=== PATIENT | male | born 1950 | race Hispanic/Latino ===

== ENCOUNTER 2018-10-13 16:53 | Inpatient (IN) | payer MEDICARE, BC ==
--- NOTE | 2018-10-13 18:03 | RAD ---
Date of service: 10/13/2018 HISTORY: CHF. COMPARISON: No prior. FINDINGS: LUNGS: No active pulmonary disease. PLEURA: No significant pleural effusion identified, no pneumothorax apparent. CARDIOVASCULAR: Cardiomegaly. No evidence of acute, significant cardiovascular disease. No radiographic findings to suggest acute or significant cardiovascular disease. Incidental Finding(s): Postoperative changes related to sternotomy. OSSEOUS STRUCTURES: No significant abnormalities. VISUALIZED UPPER ABDOMEN: Normal. OTHER FINDINGS: None. IMPRESSION: No active disease.
--- NOTE | 2018-10-13 18:24 | C.PDOC ---
History Of Present Illness 68 y/o male presents to ED sent by Dr. Davies for worsening leg swelling since 11/2017. Patient admits to sob on exertion and denies chest pain, fever, chills, nausea, vomiting, change in sensation to legs or any other complaints at this time. Time Seen by Provider: 10/13/18 17:29 Chief Complaint (Nursing): Lower Extremity Problem/Injury History Per: Patient History/Exam Limitations: no limitations Onset/Duration Of Symptoms: Days Current Symptoms Are (Timing): Still Present Past Medical History Reviewed: Historical Data, Nursing Documentation, Vital Signs Vital Signs: Last Vital Signs Temp 97.8 F 10/13/18 17:34 Pulse 81 10/13/18 18:06 Resp 18 10/13/18 18:06 BP 169/93 H 10/13/18 18:06 Pulse Ox 96 10/13/18 18:06 - Medical History PMH: No Chronic Diseases Surgical History: No Surg Hx Family History: States: No Known Family Hx - Social History Hx Alcohol Use: No Hx Substance Use: No Review Of Systems Constitutional: Negative for: Fever, Chills Cardiovascular: Negative for: Chest Pain, Palpitations Respiratory: Positive for: SOB with Excertion. Negative for: Cough Gastrointestinal: Negative for: Nausea, Vomiting Musculoskeletal: Positive for: Leg Pain (swelling) Skin: Negative for: Rash, Bruising Neurological: Negative for: Weakness, Numbness Physical Exam - Physical Exam Appears: Non-toxic, No Acute Distress Skin: Warm, Dry, No Rash Head: Atraumatic, Normacephalic Eye(s): bilateral: Normal Inspection Oral Mucosa: Moist Neck: Normal ROM, Supple Cardiovascular: Rhythm Irregular Respiratory: Normal Breath Sounds, No Rales, No Rhonchi, No Wheezing Gastrointestinal/Abdominal: Soft, No Tenderness, No Guarding, No Rebound Extremity: Pedal Edema (3+ on bilateral lower extremities with venoustasis), Capillary Refill (<2 seconds), No Deformity Extremity: Bilateral: Normal ROM Pulses: Left Dorsalis Pedis: Normal, Right Dorsalis Pedis: Normal Neurological/Psych: Oriented x3, Normal Motor, Normal Sensation ED Course And Treatment - Laboratory Results Result Diagrams: 10/13/18 18:21 10/13/18 18:21 ECG: Interpreted By Me ECG Rhythm: Atrial Fibrillation, PVC (occasional) Interpretation Of ECG: Normal axis, no ST elevation Rate From EC O2 Sat by Pulse Oximetry: 96 (RA) Pulse Ox Interpretation: Normal - Radiology CXR: Read By Radiologist CXR Interpretation: Yes: No Acute Disease Medical Decision Making Medical Decision Making: Plan: * ECG * Blood work * Lasix Patient given 40mg lasix ivp. Lab and XR results reviewed and discussed with patient. BP improved to 169/93. Case discussed with Dr. Lozoya who accepts patient to his service. Disposition - Disposition Disposition Time: 19:20 Condition: STABLE Forms: [employer] (Taiwanese) - Clinical Impression Clinical Impression: CHF (congestive heart failure) - Scribe Statement The provider has reviewed the documentation as recorded by the Scribe Sheryl Ordonez All medical record entries made by the Scribe were at my direction and personally dictated by me. I have reviewed the chart and agree that the record accurately reflects my personal performance of the history, physical exam, medical decision making, and the department course for this patient. I have also personally directed, reviewed, and agree with the discharge instructions and disposition.
[2018-10-13 18:25] LABS: BASO # 0.1 K/uL (0.0-0.2); BASO % 0.6 % (0.0-2.0); EOS # 0.2 K/uL (0.0-0.7); EOS % 2.8 % (0.0-4.0); HEMOGLOBIN 13.2 g/dL (12.0-18.0); LYMPH # 1.9 K/uL (1.0-4.3); LYMPH % 22.3 % (20.0-40.0); MEAN CELL VOLUME 83.3 fL (80.0-94.0); MEAN CORPUSCULAR HEMOGLOBIN 27.4 pg (27.0-31.0); MEAN CORPUSCULAR HGB CONC 32.9 g/dL (33.0-37.0); MONO # 0.8 K/uL (0.0-0.8); MONO % 9.9 % (0.0-10.0); NEUT # 5.4 K/uL (1.8-7.0); NEUT % 64.4 % (50.0-75.0); RBC 4.83 Mil/uL (4.40-5.90); RED CELL DISTRIBUTION WIDTH 15.6 % (11.5-14.5); WHITE BLOOD COUNT 8.4 K/uL (4.8-10.8)
[2018-10-13 18:40] LABS: BLOOD UREA NITROGEN 14 mg/dL (9-20); CALCIUM 9.3 mg/dl (8.6-10.4); GFR NON-AFRICAN AMERICAN > 60
[2018-10-13 18:41] LABS: INR 1.3; PROTHROMBIN TIME 14.4 SECONDS (9.7-12.2)
[2018-10-13 18:52] LABS: B-TYPE NATRIURETIC PEPTIDE 2120 pg/mL (0-900)
--- NOTE | 2018-10-13 20:48 | CP.PCM.CON ---
History of Present Illness - History of Present Illness History of Present Illness: INFECTIOUS DISEASE CONSULTATION REANNA MOREL MD, FACP 10/13/2018 CHART REVIEWD PT EXAMINED CASE DISCUSSED 68 YR OLD MALE PRESENTS WITH PROGRESSIVE SWELLING OF HIS LEGS, FEET AND DIFFICULTY WALKING -2ND TO SOB,CALDERA, AND PAINFULL LEGS. ADMISSION WAS INITIALLY ADVISED 2ND TO CHF, CAD, DM, S/P RECENT CARDIAC STENTS, BP OUT OF CONTROLL - DR PERALTA IS AWARE. AN INFECTIOUS DISEASE CONSULTATION WAS ADVISED 2ND CELLULITIS OF HIS FEET, LEGS AND RIGHT GROIN: DOUBT ZOSTER OF GROIN. OBSERVE MEDICALLY IV LASIX IV ANCEF 2 GMS IVPB Q 8 HOURS BLOOD C/S BP MEDS Past Patient History - Past Social History Smoking Status: Never Smoked - PSYCHIATRIC Hx Substance Use: No Meds Allergies/Adverse Reactions: Allergies Allergy/AdvReac Type Severity Reaction Status Date / Time No Known Allergies Allergy Unverified 10/13/18 17:26 - Medications Medications: Current Medications Carvedilol (Coreg) 6.25 mg PO BID [facility] Clopidogrel Bisulfate (Plavix) 75 mg PO DAILY [facility] Diltiazem HCl (Cardizem Cd) 240 mg PO DAILY [facility] Furosemide (Lasix) 40 mg IVP BID [facility] Gabapentin (Neurontin) 300 mg PO TID [facility] Hydralazine HCl (Apresoline) 25 mg PO BID [facility] Cefazolin Sodium/Dextrose (Ancef Iv 2 Gm Duplex) 2 gm in 50 mls @ 100 mls/hr IVPB Q8H [facility]; Protocol Levothyroxine Sodium (Synthroid) 75 mcg PO DAILY@0630 [facility] Rivaroxaban (Xarelto) 20 mg PO DAILY [facility] Rosuvastatin Calcium (Crestor) 40 mg PO HS [facility] Results - Vital Signs Recent Vital Signs: Last Vital Signs Temp 97.8 F 10/13/18 17:34 Pulse 87 10/13/18 19:56 Resp 17 10/13/18 19:56 BP 181/97 H 10/13/18 19:56 Pulse Ox 98 10/13/18 19:56 - Labs Result Diagrams: 10/13/18 18:21 10/13/18 18:21 Labs: Laboratory Results - last 24 hr 10/13/18 10/13/18 10/13/18 18:21 18:21 18:21 WBC 8.4 RBC 4.83 Hgb 13.2 Hct 40.2 MCV 83.3 MCH 27.4 MCHC 32.9 L RDW 15.6 H Plt Count 240 MPV 9.0 Neut % (Auto) 64.4 Lymph % (Auto) 22.3 [place] % (Auto) 9.9 Eos % (Auto) 2.8 Baso % (Auto) 0.6 Neut # (Auto) 5.4 Lymph # (Auto) 1.9 [place] # (Auto) 0.8 Eos # (Auto) 0.2 Baso # (Auto) 0.1 PT 14.4 H INR 1.3 APTT 35 H Sodium 141 Potassium 3.8 Chloride 105 Carbon Dioxide 26 Anion Gap 14 BUN 14 Creatinine 0.8 Est GFR ( Amer) > 60 Est GFR (Non-Af Amer) > 60 POC Glucose (mg/dL) Random Glucose 126 H Calcium 9.3 Troponin I 0.0300 NT-Pro-B Natriuret Pep 2120 H 10/13/18 18:26 WBC RBC Hgb Hct MCV MCH MCHC RDW Plt Count MPV Neut % (Auto) Lymph % (Auto) [place] % (Auto) Eos % (Auto) Baso % (Auto) Neut # (Auto) Lymph # (Auto) [place] # (Auto) Eos # (Auto) Baso # (Auto) PT INR APTT Sodium Potassium Chloride Carbon Dioxide Anion Gap BUN Creatinine Est GFR ( Amer) Est GFR (Non-Af Amer) POC Glucose (mg/dL) 130 H Random Glucose Calcium Troponin I NT-Pro-B Natriuret Pep
[2018-10-13] MEDS ORDERED: ceFAZolin IV 2 gm in Dextrose 2 GM/50 ML BAG IVPB SCH (21:00)
[2018-10-13] MEDS: ceFAZolin 2 GM in Sodium Chloride 0.9% 100 ML IVPB SCH (21:39)
[2018-10-14] MEDS: ceFAZolin 2 GM in Sodium Chloride 0.9% 100 ML IVPB SCH ×3 (05:39→21:28)
--- NOTE | 2018-10-14 06:08 | CP.PCM.CON ---
History of Present Illness - History of Present Illness History of Present Illness: Patient sent from Dr. Mayorga's office for acute on Chronic diastolic CHF Pedal edema IV Laisix Check ECHO ministerio Patel Will follow Past Patient History - Past Social History Smoking Status: Former Smoker - CARDIAC Hx Congestive Heart Failure: Yes Hx Heart Attack: Yes - NEUROLOGICAL HX Cerebrovascular Accident: Yes - ENDOCRINE/METABOLIC Hx Diabetes Mellitus Type 2: Yes - MUSCULOSKELETAL/RHEUMATOLOGICAL Hx Arthritis: Yes Hx Falls: No - PSYCHIATRIC Hx Substance Use: No - SURGICAL HISTORY Hx Cardiac Catheterization: Yes Other/Comment: CABG x 4 stents - ANESTHESIA Hx Anesthesia: Yes Has any member of the family had a problem w/ anesthesia?: No Meds Allergies/Adverse Reactions: Allergies Allergy/AdvReac Type Severity Reaction Status Date / Time No Known Allergies Allergy Unverified 10/13/18 17:26 - Medications Medications: Current Medications Carvedilol (Coreg) 6.25 mg PO BID [facility] Clopidogrel Bisulfate (Plavix) 75 mg PO DAILY [facility] Diltiazem HCl (Cardizem Cd) 240 mg PO DAILY [facility] Furosemide (Lasix) 40 mg IVP BID [facility] Gabapentin (Neurontin) 300 mg PO TID [facility] Hydralazine HCl (Apresoline) 25 mg PO BID [facility] Cefazolin Sodium 2 gm/ Sodium (Chloride) 100 mls @ 100 mls/hr IVPB Q8H [facility]; Protocol Last Admin: 10/14/18 05:39 Dose: 100 mls/hr Levothyroxine Sodium (Synthroid) 75 mcg PO DAILY@0630 [facility] Last Admin: 10/14/18 05:40 Dose: 75 mcg Rivaroxaban (Xarelto) 20 mg PO DAILY [facility] Rosuvastatin Calcium (Crestor) 40 mg PO HS [facility] Last Admin: 10/13/18 21:37 Dose: 40 mg Results - Vital Signs Recent Vital Signs: Last Vital Signs Temp 98.2 F 10/14/18 00:00 Pulse 85 10/14/18 00:00 Resp 20 10/14/18 00:00 BP 165/77 H 10/14/18 00:00 Pulse Ox 95 10/14/18 00:00 - Labs Result Diagrams: 10/13/18 18:21 10/13/18 18:21 Labs: Laboratory Results - last 24 hr 10/13/18 10/13/18 10/13/18 18:21 18:21 18:21 WBC 8.4 RBC 4.83 Hgb 13.2 Hct 40.2 MCV 83.3 MCH 27.4 MCHC 32.9 L RDW 15.6 H Plt Count 240 MPV 9.0 Neut % (Auto) 64.4 Lymph % (Auto) 22.3 [place] % (Auto) 9.9 Eos % (Auto) 2.8 Baso % (Auto) 0.6 Neut # (Auto) 5.4 Lymph # (Auto) 1.9 [place] # (Auto) 0.8 Eos # (Auto) 0.2 Baso # (Auto) 0.1 PT 14.4 H INR 1.3 APTT 35 H Sodium 141 Potassium 3.8 Chloride 105 Carbon Dioxide 26 Anion Gap 14 BUN 14 Creatinine 0.8 Est GFR ( Amer) > 60 Est GFR (Non-Af Amer) > 60 POC Glucose (mg/dL) Random Glucose 126 H Calcium 9.3 Troponin I 0.0300 NT-Pro-B Natriuret Pep 2120 H 10/13/18 10/13/18 10/13/18 18:26 22:11 22:18 WBC RBC Hgb Hct MCV MCH MCHC RDW Plt Count MPV Neut % (Auto) Lymph % (Auto) [place] % (Auto) Eos % (Auto) Baso % (Auto) Neut # (Auto) Lymph # (Auto) [place] # (Auto) Eos # (Auto) Baso # (Auto) PT INR APTT Sodium Potassium Chloride Carbon Dioxide Anion Gap BUN Creatinine Est GFR ( Amer) Est GFR (Non-Af Amer) POC Glucose (mg/dL) 130 H 134 H Random Glucose Calcium Troponin I 0.0400 NT-Pro-B Natriuret Pep
[2018-10-14] MEDS ORDERED: Levothyroxine 75 MCG TAB PO SCH (06:30)
[2018-10-14 06:34] LABS: BASO # 0.1 K/uL (0.0-0.2); BASO % 0.8 % (0.0-2.0); EOS # 0.3 K/uL (0.0-0.7); EOS % 3.4 % (0.0-4.0); HEMOGLOBIN 12.7 g/dL (12.0-18.0); LYMPH # 1.8 K/uL (1.0-4.3); LYMPH % 23.8 % (20.0-40.0); MEAN CELL VOLUME 82.9 fL (80.0-94.0); MEAN CORPUSCULAR HEMOGLOBIN 27.7 pg (27.0-31.0); MEAN CORPUSCULAR HGB CONC 33.4 g/dL (33.0-37.0); MEAN PLATELET VOLUME 8.6 fL (7.2-11.7); MONO # 0.9 K/uL (0.0-0.8); MONO % 12.4 % (0.0-10.0); NEUT # 4.5 K/uL (1.8-7.0); NEUT % 59.6 % (50.0-75.0); RBC 4.59 Mil/uL (4.40-5.90); RED CELL DISTRIBUTION WIDTH 15.7 % (11.5-14.5); WHITE BLOOD COUNT 7.6 K/uL (4.8-10.8)
[2018-10-14 06:54] LABS: ALB/GLOB RATIO 1.6 (1.0-2.1); ALBUMIN 3.9 g/dL (3.5-5.0); ALT/SGPT 25 U/L (21-72); AST/SGOT 25 U/L (17-59); BLOOD UREA NITROGEN 14 mg/dL (9-20); CALCIUM 8.8 mg/dl (8.6-10.4); GFR NON-AFRICAN AMERICAN > 60
--- NOTE | 2018-10-14 07:03 | CARD ---
APPROVED REPORT Date of service: 10/13/2018 EKG Measurement Heart [id number] <Conclusion> Atrial fibrillation with ashmans phenomenon Abnormal QRS-T angle, consider primary T wave abnormality Abnormal ECG
[2018-10-14] MEDS ORDERED: diltiaZEM 240 mg/24 Hours CD Cap PO SCH (10:00)
[2018-10-14] MEDS ORDERED: Potassium Chloride 20 mEq ER Tab PO ONE (11:59)
--- NOTE | 2018-10-14 13:09 | CP.PCM.PN ---
<Katherine Yooa - Last Filed: 10/14/18 13:06> Subjective - Date & Time of Evaluation Date of Evaluation: 10/14/18 Time of Evaluation: 13:06 - Subjective Subjective: Cardiology Follow Up Patient was seen and examined. Patient denied any current chest pain, shortness, and palpitations. Objective - Vital Signs/Intake and Output Vital Signs (last 24 hours): Temp Pulse Resp BP Pulse Ox 97.7 F 71 20 166/97 H 98 10/14/18 07:00 10/14/18 11:03 10/14/18 07:00 10/14/18 11:04 10/14/18 07:00 Intake and Output: 10/14/18 10/14/18 06:59 18:59 Intake Total 200 Output Total 350 Balance -150 - Medications Medications: Current Medications Carvedilol (Coreg) 6.25 mg PO BID [facility] Last Admin: 10/14/18 11:04 Dose: 6.25 mg Clopidogrel Bisulfate (Plavix) 75 mg PO DAILY [facility] Last Admin: 10/14/18 11:04 Dose: 75 mg Diltiazem HCl (Cardizem Cd) 240 mg PO DAILY [facility] Last Admin: 10/14/18 11:05 Dose: 240 mg Furosemide (Lasix) 40 mg IVP BID [facility] Last Admin: 10/14/18 11:04 Dose: 40 mg Gabapentin (Neurontin) 300 mg PO TID [facility] Last Admin: 10/14/18 11:04 Dose: 300 mg Hydralazine HCl (Apresoline) 25 mg PO QID [facility] Cefazolin Sodium 2 gm/ Sodium (Chloride) 100 mls @ 100 mls/hr IVPB Q8H [facility]; Protocol Last Admin: 10/14/18 05:39 Dose: 100 mls/hr Levothyroxine Sodium (Synthroid) 75 mcg PO DAILY@0630 [facility] Last Admin: 10/14/18 05:40 Dose: 75 mcg Rivaroxaban (Xarelto) 15 mg PO DAILY [facility] Last Admin: 10/14/18 11:13 Dose: 15 mg Rosuvastatin Calcium (Crestor) 40 mg PO HS [facility] Last Admin: 10/13/18 21:37 Dose: 40 mg - Labs Labs: 10/14/18 06:28 10/14/18 06:28 PT 14.4 SECONDS (9.7-12.2) H 10/13/18 18:21 INR 1.3 10/13/18 18:21 APTT 35 SECONDS (21-34) H 10/13/18 18:21 - Constitutional Appears: No Acute Distress - Head Exam Head Exam: NORMAL INSPECTION, NORMOCEPHALIC - Eye Exam Eye Exam: EOMI, PERRL - ENT Exam ENT Exam: Mucous Membranes Moist - Respiratory Exam Respiratory Exam: Clear to Ausculation Bilateral, NORMAL BREATHING PATTERN. absent: Decreased Breath Sounds - Cardiovascular Exam Cardiovascular Exam: REGULAR RHYTHM - GI/Abdominal Exam GI & Abdominal Exam: Soft, Normal Bowel Sounds. absent: Distended, Tenderness - Extremities Exam Extremities Exam: Pedal Edema, Tenderness Additional comments: bilateral edema from knees down; erythema noted, no open wounds, blisters. - Neurological Exam Neurological Exam: Alert, Awake, Oriented x3 - Psychiatric Exam Psychiatric exam: Normal Affect, Normal Mood - Skin Skin Exam: Dry, Intact, Normal Color, Warm Assessment and Plan - Assessment and Plan (Free Text) Plan: Bilateral Lower Extremity Edema / Underlying Cellulitis Chronic Diastolic Heart Failure Hx Hypertension, T2DM, CAD with CABG (4 vessel, 2000; 1 stent 2015; 11/2017 4 stents), HAZEL, PVD, PAD? Imaging: - Patient reports he had a stress test this year, normal - ECHO: ordered, pending lab results - Venous Dopplers: ordered, pending lab results - Arterial Dopplers: ordered, pending lab results Management: - Imaging ordered, will follow up results - Continue with Lasix 40mg IVP BID Case discussed with Miriam Cm DO, PGY2 <Bernardo Hernandez - Last Filed: 10/14/18 19:58> Objective - Vital Signs/Intake and Output Vital Signs (last 24 hours): Temp Pulse Resp BP Pulse Ox 97.9 F 50 L 20 119/67 98 10/14/18 19:04 10/14/18 19:04 10/14/18 19:04 10/14/18 19:04 10/14/18 19:04 Intake and Output: 10/14/18 10/15/18 18:59 06:59 Intake Total 500 Output Total 700 Balance -200 - Medications Medications: Current Medications Betamethasone/Clotrimazole (Lotrisone) 0 gm TOP BID [facility] Last Admin: 10/14/18 17:08 Dose: 1 applic Carvedilol (Coreg) 6.25 mg PO BID [facility] Last Admin: 10/14/18 17:07 Dose: 6.25 mg Clopidogrel Bisulfate (Plavix) 75 mg PO DAILY [facility] Last Admin: 10/14/18 11:04 Dose: 75 mg Diltiazem HCl (Cardizem Cd) 240 mg PO DAILY [facility] Last Admin: 10/14/18 11:05 Dose: 240 mg Furosemide (Lasix) 40 mg IVP BID [facility] Last Admin: 10/14/18 17:07 Dose: 40 mg Gabapentin (Neurontin) 300 mg PO TID [facility] Last Admin: 10/14/18 17:07 Dose: 300 mg Hydralazine HCl (Apresoline) 25 mg PO QID [facility] Last Admin: 10/14/18 17:07 Dose: 25 mg Cefazolin Sodium 2 gm/ Sodium (Chloride) 100 mls @ 100 mls/hr IVPB Q8H [facility]; Protocol Last Admin: 10/14/18 13:49 Dose: 100 mls/hr Levothyroxine Sodium (Synthroid) 75 mcg PO DAILY@0630 [facility] Last Admin: 10/14/18 05:40 Dose: 75 mcg Rivaroxaban (Xarelto) 15 mg PO DAILY [facility] Last Admin: 10/14/18 11:13 Dose: 15 mg Rosuvastatin Calcium (Crestor) 40 mg PO HS [facility] Last Admin: 10/13/18 21:37 Dose: 40 mg Silver Sulfadiazine (Silvadene 1% 20 Gm) 0 ea TOP BID [facility] Last Admin: 10/14/18 17:08 Dose: 1 applic - Labs Labs: 10/14/18 06:28 10/14/18 06:28 PT 14.4 SECONDS (9.7-12.2) H 10/13/18 18:21 INR 1.3 10/13/18 18:21 APTT 35 SECONDS (21-34) H 10/13/18 18:21 Assessment and Plan - Assessment and Plan (Free Text) Plan: Patient seen and evaluated personally by me. Plan of care d/w the medical resi dent and as documented
--- NOTE | 2018-10-14 13:24 | CARD ---
APPROVED REPORT Date of service: 10/14/2018 EXAM: Two-dimensional and M-mode echocardiogram with Doppler and color Doppler. Other Information Quality : TDSRhythm : INDICATION Peripheral Edema Cardiac Disease: CAD Congestive Heart Failure Surgery/Intervention CABD DIMENSIONS IVSd1.6 (0.7-1.1cm)LVDd4.4 (3.9-5.9cm) PWd1.2 (0.7-1.1cm)LA [id number] (18-58mL) LVDs3.1 (2.5-4.0cm)FS (%) 30.1 % LVEF (%)50.0 (>50%)LVEF (Brody's)51.04 % M-Mode DIMENSIONS Left Atrium (MM)3.88 (2.5-4.0cm)IVSd1.09 (0.7-1.1cm) Aortic Root4.41 (2.2-3.7cm)LVDd7.02 (4.0-5.6cm) Aortic Cusp Exc.2.58 (1.5-2.0cm)PWd1.12 (0.7-1.1cm) FS (%) 20 %LVDs5.58 (2.0-3.8cm) LVEF (%)50 (>50%) Mitral Valve MV E Ntxosucz121.8cm/sMV A Hrkfqdex26.5cm/sE/A ratio4.7 TDI Lateral E' Peak V6.80cm/sMedial E' Peak V7.71cm/sE/Lateral E'19.7 E/Medial E'17.4 Tricuspid Valve TR Peak Rwztycsu241xc/sTR Peak Gr.[id number] <Conclusion> Suboptimal study Left ventricle: thickness: normal; size: normal; overall ejection fraction: 65%: diastolic filling pressures: elevated Mitral valve: annulus: normal: leaflets: normal: excursion: normal; no significant trans-mitral gradient: No significant incompetence: left atrium: normal Aortic valve: leaflets:calcified thicke: excursion: normal; no significant trans-aortic gradient: mild incompetence: aortic root: dilated Right sided Structures: Pulmonary valve: normal; no significant incompetence; Tricuspid valve: normal; no significant incompetence: Intra-cardiac hemodynamics: pulmonary systolic pressures: 40mmHg; central venous pressures: normal No pericardial effusion
--- NOTE | 2018-10-14 14:26 | CP.PCM.CON ---
History of Present Illness - History of Present Illness History of Present Illness: Podiatry - Dr. Chairez 68 year old male patient seen and evaluated at bedside for lower extremity redness + swelling. Patient OOB in recliner, NAD. Patient was sent to ED by Dr. Hernandez for worsening leg swelling. At present, patient admits to tense, painful legs and reports difficulty with ambulation 2/2 severe lower extremity swelling, along with associated CALDERA. Patient states he was seeing an outside textile chemist for local wound care to LE, and states his existing wounds are currently closed. Denies n/v/f/d/c. Review of Systems - Review of Systems All systems: reviewed and no additional remarkable complaints except (as per HPI) Past Patient History - Past Social History Smoking Status: Former Smoker - CARDIAC Hx Congestive Heart Failure: Yes Hx Heart Attack: Yes - NEUROLOGICAL HX Cerebrovascular Accident: Yes - ENDOCRINE/METABOLIC Hx Diabetes Mellitus Type 2: Yes - MUSCULOSKELETAL/RHEUMATOLOGICAL Hx Arthritis: Yes Hx Falls: No - PSYCHIATRIC Hx Substance Use: No - SURGICAL HISTORY Hx Cardiac Catheterization: Yes Other/Comment: CABG x 4 stents - ANESTHESIA Hx Anesthesia: Yes Has any member of the family had a problem w/ anesthesia?: No Meds Allergies/Adverse Reactions: Allergies Allergy/AdvReac Type Severity Reaction Status Date / Time No Known Allergies Allergy Unverified 10/13/18 17:26 - Medications Medications: Current Medications Carvedilol (Coreg) 6.25 mg PO BID [facility] Last Admin: 10/14/18 11:04 Dose: 6.25 mg Clopidogrel Bisulfate (Plavix) 75 mg PO DAILY [facility] Last Admin: 10/14/18 11:04 Dose: 75 mg Diltiazem HCl (Cardizem Cd) 240 mg PO DAILY [facility] Last Admin: 10/14/18 11:05 Dose: 240 mg Furosemide (Lasix) 40 mg IVP BID [facility] Last Admin: 10/14/18 11:04 Dose: 40 mg Gabapentin (Neurontin) 300 mg PO TID [facility] Last Admin: 10/14/18 13:51 Dose: 300 mg Hydralazine HCl (Apresoline) 25 mg PO QID [facility] Last Admin: 10/14/18 13:51 Dose: 25 mg Cefazolin Sodium 2 gm/ Sodium (Chloride) 100 mls @ 100 mls/hr IVPB Q8H [facility]; Protocol Last Admin: 10/14/18 13:49 Dose: 100 mls/hr Levothyroxine Sodium (Synthroid) 75 mcg PO DAILY@0630 [facility] Last Admin: 10/14/18 05:40 Dose: 75 mcg Rivaroxaban (Xarelto) 15 mg PO DAILY [facility] Last Admin: 10/14/18 11:13 Dose: 15 mg Rosuvastatin Calcium (Crestor) 40 mg PO HS [facility] Last Admin: 10/13/18 21:37 Dose: 40 mg Physical Exam - Constitutional Appears: Non-toxic, No Acute Distress - Extremities Exam Additional comments: VASC: DP and PT pulses nonpalpable 2/2 edema. Temperature gradient warm to warm. +3 pitting edema present bilaterally. No hair growth appreciated. NEURO: Gross sensation diminished bilaterally. DERM: Ulcerations noted circumfirentially to legs b/l with eschar cap - no drainage, no purulence, no flucutance, no undermining. Venous stasis dermatitis present bilaterally. Erythema/rubor from digits extending proximally up lower extremities b/l. ORTHO: ROM limited secondary to edema. No pain on palpation noted to ulcerations. - Neurological Exam Neurological exam: Alert, Oriented x3 - Psychiatric Exam Psychiatric exam: Normal Affect, Normal Mood Results - Vital Signs Recent Vital Signs: Last Vital Signs Temp 97.7 F 10/14/18 07:00 Pulse 78 10/14/18 13:51 Resp 20 10/14/18 07:00 BP 133/83 10/14/18 13:51 Pulse Ox 98 10/14/18 07:00 - Labs Result Diagrams: 10/14/18 06:28 10/14/18 06:28 Labs: Laboratory Results - last 24 hr 10/13/18 10/13/18 10/13/18 18:21 18:21 18:21 WBC 8.4 RBC 4.83 Hgb 13.2 Hct 40.2 MCV 83.3 MCH 27.4 MCHC 32.9 L RDW 15.6 H Plt Count 240 MPV 9.0 Neut % (Auto) 64.4 Lymph % (Auto) 22.3 [place] % (Auto) 9.9 Eos % (Auto) 2.8 Baso % (Auto) 0.6 Neut # (Auto) 5.4 Lymph # (Auto) 1.9 [place]k # (Auto) 0.8 Eos # (Auto) 0.2 Baso # (Auto) 0.1 ESR PT 14.4 H INR 1.3 APTT 35 H Sodium 141 Potassium 3.8 Chloride 105 Carbon Dioxide 26 Anion Gap 14 BUN 14 Creatinine 0.8 Est GFR ( Amer) > 60 Est GFR (Non-Af Amer) > 60 POC Glucose (mg/dL) Random Glucose 126 H Calcium 9.3 Total Bilirubin AST ALT Alkaline Phosphatase Troponin I 0.0300 C-Reactive Protein NT-Pro-B Natriuret Pep 2120 H Total Protein Albumin Globulin Albumin/Globulin Ratio TSH 3rd Generation 10/13/18 10/13/18 10/13/18 18:26 22:11 22:18 WBC RBC Hgb Hct MCV MCH MCHC RDW Plt Count MPV Neut % (Auto) Lymph % (Auto) [place] % (Auto) Eos % (Auto) Baso % (Auto) Neut # (Auto) Lymph # (Auto) [place]k # (Auto) Eos # (Auto) Baso # (Auto) ESR PT INR APTT Sodium Potassium Chloride Carbon Dioxide Anion Gap BUN Creatinine Est GFR ( Amer) Est GFR (Non-Af Amer) POC Glucose (mg/dL) 130 H 134 H Random Glucose Calcium Total Bilirubin AST ALT Alkaline Phosphatase Troponin I 0.0400 C-Reactive Protein NT-Pro-B Natriuret Pep Total Protein Albumin Globulin Albumin/Globulin Ratio [facility] 3rd Generation 10/14/18 10/14/18 10/14/18 06:19 06:28 06:28 WBC 7.6 RBC 4.59 Hgb 12.7 Hct 38.0 MCV 82.9 MCH 27.7 MCHC 33.4 RDW 15.7 H Plt Count 212 MPV 8.6 Neut % (Auto) 59.6 Lymph % (Auto) 23.8 Elk % (Auto) 12.4 H Eos % (Auto) 3.4 Baso % (Auto) 0.8 Neut # (Auto) 4.5 Lymph # (Auto) 1.8 Elk # (Auto) 0.9 H Eos # (Auto) 0.3 Baso # (Auto) 0.1 ESR 6 PT INR APTT Sodium 142 Potassium 3.5 L Chloride 106 Carbon Dioxide 27 Anion Gap 13 BUN 14 Creatinine 0.8 Est GFR ( Amer) > 60 Est GFR (Non-Af Amer) > 60 POC Glucose (mg/dL) 144 H Random Glucose 143 H Calcium 8.8 Total Bilirubin 0.7 AST 25 ALT 25 Alkaline Phosphatase 123 Troponin I C-Reactive Protein 23.20 H NT-Pro-B Natriuret Pep Total Protein 6.3 Albumin 3.9 Globulin 2.4 Albumin/Globulin Ratio 1.6 TSH 3rd Generation 5.48 H 10/14/18 10:56 WBC RBC Hgb Hct MCV MCH MCHC RDW Plt Count MPV Neut % (Auto) Lymph % (Auto) [place]k % (Auto) Eos % (Auto) Baso % (Auto) Neut # (Auto) Lymph # (Auto) [place]k # (Auto) Eos # (Auto) Baso # (Auto) ESR PT INR APTT Sodium Potassium Chloride Carbon Dioxide Anion Gap BUN Creatinine Est GFR ( Amer) Est GFR (Non-Af Amer) POC Glucose (mg/dL) 162 H Random Glucose Calcium Total Bilirubin AST ALT Alkaline Phosphatase Troponin I C-Reactive Protein NT-Pro-B Natriuret Pep Total Protein Albumin Globulin Albumin/Globulin Ratio TSH 3rd Generation Assessment & Plan - Assessment and Plan (Free Text) Assessment: 68M PMHx CHF with bilateral lower extremity edema and underlying cellulitis Plan: Patient seen and evaluated alongside attending, Dr. Chairez Afebrile, WBC 7.6 Continue abx per ID - Ancef 2g IV Silvadene + Lotrisone ordered - apply BID with DANIEL wraps Podiatry will continue to follow
[2018-10-14] MEDS: Clotrimazole/Betamethasone Cream(15 gm) TOP SCH (17:08)
[2018-10-14] MEDS: Silver Sulfadiazine 1% Cream (20 gm) TOP SCH (17:08)
--- NOTE | 2018-10-14 20:10 | CP.PCM.PN ---
Subjective - Date & Time of Evaluation Date of Evaluation: 10/14/18 Time of Evaluation: 20:04 - Subjective Subjective: INFECTIOUS DISEASE PROGRESS NOTES REANNA MOREL MD, FACP 10/14/2018 CHART REVIEWED PT EXAMINED CASE DISCUSSED 68 year old male patient seen and evaluated at bedside for lower extremity redness + swelling. Patient OOB in recliner, NAD. Patient was sent to ED by Dr. MOREL for worsening leg swelling. At present, patient admits to tense, painful legs and reports difficulty with ambulation 2/2 severe lower extremity swelling, along with associated CALDERA. Patient states he was seeing an outside assembler camper for local wound care to LE, and states his existing wounds are currently closed. Denies n/v/f/d/c. CHF CAD S/P CABG HYPOTHROIDISM HTN OBESITY DM OSTEOARTHRITIS PVD ENLARGED PROSTATE-BPH CONTINUE SYNTHROID EMPIRIC ANCEF DR PERALTA TO EVALUATE DR VIDAL TO FOLLOW IN THE HOSPITAL WEIGHT THE PATIENT DAILY IF POSSIBLE HGB A1C ESR CRP BNP MONITOR AND TREAT ACCORDINGLY Objective - Vital Signs/Intake and Output Vital Signs (last 24 hours): Temp Pulse Resp BP Pulse Ox 97.9 F 50 L 20 119/67 98 10/14/18 19:04 10/14/18 19:04 10/14/18 19:04 10/14/18 19:04 10/14/18 19:04 Intake and Output: 10/14/18 10/15/18 18:59 06:59 Intake Total 500 Output Total 700 Balance -200 - Medications Medications: Current Medications Betamethasone/Clotrimazole (Lotrisone) 0 gm TOP BID [facility] Last Admin: 10/14/18 17:08 Dose: 1 applic Carvedilol (Coreg) 6.25 mg PO BID [facility] Last Admin: 10/14/18 17:07 Dose: 6.25 mg Clopidogrel Bisulfate (Plavix) 75 mg PO DAILY [facility] Last Admin: 10/14/18 11:04 Dose: 75 mg Diltiazem HCl (Cardizem Cd) 240 mg PO DAILY [facility] Last Admin: 10/14/18 11:05 Dose: 240 mg Furosemide (Lasix) 40 mg IVP BID [facility] Last Admin: 10/14/18 17:07 Dose: 40 mg Gabapentin (Neurontin) 300 mg PO TID [facility] Last Admin: 10/14/18 17:07 Dose: 300 mg Hydralazine HCl (Apresoline) 25 mg PO QID [facility] Last Admin: 10/14/18 17:07 Dose: 25 mg Cefazolin Sodium 2 gm/ Sodium (Chloride) 100 mls @ 100 mls/hr IVPB Q8H [facility]; Protocol Last Admin: 10/14/18 13:49 Dose: 100 mls/hr Levothyroxine Sodium (Synthroid) 75 mcg PO DAILY@0630 [facility] Last Admin: 10/14/18 05:40 Dose: 75 mcg Rivaroxaban (Xarelto) 15 mg PO DAILY [facility] Last Admin: 10/14/18 11:13 Dose: 15 mg Rosuvastatin Calcium (Crestor) 40 mg PO HS [facility] Last Admin: 10/13/18 21:37 Dose: 40 mg Silver Sulfadiazine (Silvadene 1% 20 Gm) 0 ea TOP BID [facility] Last Admin: 10/14/18 17:08 Dose: 1 applic - Labs Labs: 10/14/18 06:28 10/14/18 06:28 PT 14.4 SECONDS (9.7-12.2) H 10/13/18 18:21 INR 1.3 10/13/18 18:21 APTT 35 SECONDS (21-34) H 10/13/18 18:21
[2018-10-14] MEDS ORDERED: Potassium Chloride 20 mEq/15 ml LIQ UD PO STA (22:37)
[2018-10-14 22:51] LABS: ALB/GLOB RATIO 1.6 (1.0-2.1); ALBUMIN 3.7 g/dL (3.5-5.0); ALT/SGPT 23 U/L (21-72); AST/SGOT 18 U/L (17-59); BLOOD UREA NITROGEN 17 mg/dL (9-20); CALCIUM 8.5 mg/dl (8.6-10.4); GFR NON-AFRICAN AMERICAN > 60
--- NOTE | 2018-10-15 02:01 | PN ---
DATE: 10/14/2018 TIME: 10:25 p.m. SUBJECTIVE: The patient is currently comfortably lying down in the bed. He is not in any distress. He denies any chest pain. He has no nausea, vomiting. He has no dizziness. The patient underwent vascular Doppler of the legs, but study was incomplete because he was complaining of lot of pain in the right inguinal area. The rash is still persistently noted. Mild pain noted. No distress otherwise. Leg edema still noted. Redness in the leg is also present. The patient is complaining of pain in the right leg more than the left leg. The ulcer in the right second great toe is actually better. Less swell noted and the patient is currently receiving intravenous Lasix. He is making significant amount of urine. The patient is currently weighing around 305 pounds. PHYSICAL EXAMINATION: VITAL SIGNS: Temperature is 97.9, pulse 50, blood pressure 119/67, respirations 20, saturation 98%. CHEST: Bilateral good air entry. HEART: Irregular heart sound noted. Rhythm analysis showing mild bradycardia. Heart rate of 42 with atrial fibrillation. ABDOMEN: Nontender. LABORATORY DATA: Today labs WBC 7.6, hemoglobin 12.7, hematocrit is 38, BUN is 14, creatinine is 0.8, CRP level is 23, and also TSH level is 5.4 noted. Troponin is negative. Echocardiogram showing evidence of moderate pulmonary hypertension, ejection fraction is normal. Mild valvular insufficiency is present. Otherwise, stable. ASSESSMENT AND RECOMMENDATION: A 68-year-old male with multiple medical history, admitted now with chronic leg swelling with acute exacerbation, worsening fluid overload, renal diastolic heart failure with pulmonary hypertension, and cor pulmonale. We will keep the patient on BiPAP oxygen, bronchodilator, currently on antibiotic. We will closely monitor the heart rate. We will reduce the dose of Cardizem and also reduce the dose of Coreg. Continue to monitor the heart rate, and we will follow up the patient. Genoveva Lozoya MD
--- NOTE | 2018-10-15 03:43 | HP ---
TIME OF EVALUATION: The patient was seen by me at 6:30 p.m. in the emergency room. CHIEF COMPLAINT: Leg swelling and shortness of breath. HISTORY OF PRESENT ILLNESS: A 68-year-old male with multiple medical history including heart disease, congestive heart failure, history of stent in the heart, obstructive sleep apnea, history of COPD, hypertension, diabetes, hypercholesterolemia., chronic venous insufficiency, chronic leg ulcers, also being treated in the wound care settings. He came to the emergency room with symptoms of bilateral worsening leg swelling, unable to walk, and also worsening shortness of breath. The patient went to see Dr. Davies's office by the routine visit. In the office, the patient was not able to stand up and walk, he was having severe shortness of breath, was sent to the emergency room. The patient was getting own management at a hospital near [place] for the left leg ulcers. He was also getting treatment by the marble and granite polisher for the ongoing pedal edema, leg swelling, and heart failure. The patient is suffering from the chronic leg swelling for quite some time. He was also using the compression stockings in the house, but no improvement. Recently 10 months ago, the patient had a stenting placement for the heart. At that time, he was having severe weakness in the muscles. He was also diagnosed with rhabdomyolysis along with renal insufficiency, but he never received any dialysis. Now, he is having increasing leg swelling. He was also having shortness of breath. He is not using any oxygen at home. He denies any abdominal pain. He has no sacral sores noted. He has no loss of appetite. He denies any nausea, vomiting, or other systemic symptoms. PAST MEDICAL HISTORY: As noted above, hypertension; diabetes; hypercholesterolemia; CAD, status post stent; history of obstructive sleep apnea, on CPAP. PAST SURGICAL HISTORY: Include coronary artery bypass grafting in 2000, four-vessel bypass. Following that, he had multiple stenting done. Chronic leg ulcer, he had a wound management being done. ALLERGIES: NO KNOWN DRUG ALLERGIES. PERSONAL HISTORY: The patient was a smoker in the past. Also, he denies any alcohol. The patient is currently living by himself. FAMILY HISTORY: Significant for diabetes and hypertension. REVIEW OF SYSTEMS: Noted from the chart. Headache occasionally noted. Denies any cough. Shortness of breath present. Chest pain negative. Abdominal swelling also noted. Bilateral leg swelling and also worsening leg edema noted. PHYSICAL EXAMINATION: VITAL SIGNS: Pulse 70 beats per minute, irregular heart beat noted, blood pressure 180/90. CHEST: Bilateral diffuse minimal expiratory wheezing noted. HEART: Regular heart sounds noted. ABDOMEN: Obesity present. GENITOURINARY: Right groin, there is a rash noted involving the right inguinal crease. EXTREMITIES: Bilateral leg edema noted associated with significant edema up to the thigh region noted. Healed right leg ulcers, but left leg healing ulcers noted. The patient also has dark skin changes in the great toe on the right side, fourth toe on the right side. Also, there is a foul-smelling discharge present in the nail bed. LABORATORY DATA: WBC 8.4, hemoglobin 13.2, hematocrit is 40.2, and platelet is 240. INR is 1.3. Chemistry is nonspecific. Elevated pro-BNP noted. Chest x-ray showing evidence of vascular congestion. EKG, atrial fibrillation. ASSESSMENT AND RECOMMENDATION: This is a 68-year-old male with a history of multiple medical problems including coronary artery disease, hypertension, hypercholesterolemia, diabetes, coronary artery bypass grafting, chronic leg ulcers, and chronic leg edema. Admitted with possible decompensated diastolic heart failure likely associated with the cor pulmonale contributing the venous edema of the legs associated with possible leg ulcers, nonhealing on the right great toe, underlying vascular insufficiency cannot be ruled out. Infectious disease evaluation and cardiology evaluation were called in. Deep venous thrombosis and gastrointestinal prophylaxis. The patient is already on anticoagulation. The patient was on multiple antihypertensive medications. Medications reconciliation was done. Discussed with the patient in detail about the prognosis. Also, I discussed with the Cardiology as well as Infectious Disease and Podiatry consultation. We will follow up the patient. Genoveva Lozoya MD
[2018-10-15] MEDS: ceFAZolin 2 GM in Sodium Chloride 0.9% 100 ML IVPB SCH ×3 (05:43→21:22)
[2018-10-15] MEDS: Levothyroxine 100 MCG TAB PO SCH (05:43)
[2018-10-15 08:13] LABS: BASO % 0.6 % (0.0-2.0); EOS # 0.3 K/uL (0.0-0.7); EOS % 3.3 % (0.0-4.0); HEMOGLOBIN 12.3 g/dL (12.0-18.0); LYMPH # 1.7 K/uL (1.0-4.3); LYMPH % 21.5 % (20.0-40.0); MEAN CELL VOLUME 83.2 fL (80.0-94.0); MEAN CORPUSCULAR HEMOGLOBIN 27.6 pg (27.0-31.0); MEAN CORPUSCULAR HGB CONC 33.1 g/dL (33.0-37.0); MONO % 12.6 % (0.0-10.0); NEUT # 4.9 K/uL (1.8-7.0); RBC 4.45 Mil/uL (4.40-5.90); RED CELL DISTRIBUTION WIDTH 15.9 % (11.5-14.5); WHITE BLOOD COUNT 7.9 K/uL (4.8-10.8)
[2018-10-15 08:22] LABS: ALB/GLOB RATIO 1.5 (1.0-2.1); ALBUMIN 3.6 g/dL (3.5-5.0); ALT/SGPT 19 U/L (21-72); AST/SGOT 17 U/L (17-59); BLOOD UREA NITROGEN 17 mg/dL (9-20); CALCIUM 8.6 mg/dl (8.6-10.4); GFR NON-AFRICAN AMERICAN > 60
[2018-10-15 08:36] LABS: B-TYPE NATRIURETIC PEPTIDE 976 pg/mL (0-900)
[2018-10-15] MEDS: Potassium Chloride 20 mEq ER Tab PO SCH (09:00)
[2018-10-15] MEDS: Clotrimazole/Betamethasone Cream(15 gm) TOP SCH ×2 (09:48→17:05)
[2018-10-15] MEDS: Silver Sulfadiazine 1% Cream (20 gm) TOP SCH ×2 (09:48→17:05)
[2018-10-15] MEDS: Nystatin 100,000 Units/gm Cream(15 gm) TOP SCH ×3 (10:55→17:05)
--- NOTE | 2018-10-15 11:46 | CP.PCM.PN ---
Subjective - Date & Time of Evaluation Date of Evaluation: 10/15/18 Time of Evaluation: 11:42 - Subjective Subjective: Podiatry - Dr. Chairez 68 year old male patient seen and evaluated at bedside for b/l lower extremity redness + swelling. Patient was sitting in his bed, NAD. Patient states that his burning neuropathy pain still bothers him but it's well controlled by the Gabapentin. He denies any other pedal complaint at this time. He denies any overnight n/v/f/d/c. Objective - Vital Signs/Intake and Output Vital Signs (last 24 hours): Temp Pulse Resp BP Pulse Ox 98.0 F 59 L 18 149/72 97 10/15/18 07:00 10/15/18 09:46 10/15/18 07:00 10/15/18 09:47 10/15/18 07:00 - Medications Medications: Current Medications Betamethasone/Clotrimazole (Lotrisone) 0 gm TOP BID [facility] Last Admin: 10/15/18 09:48 Dose: 1 applic Clopidogrel Bisulfate (Plavix) 75 mg PO DAILY [facility] Last Admin: 10/15/18 09:47 Dose: 75 mg Furosemide (Lasix) 40 mg IVP BID [facility] Last Admin: 10/15/18 09:47 Dose: 40 mg Gabapentin (Neurontin) 300 mg PO TID [facility] Last Admin: 10/15/18 09:47 Dose: 300 mg Hydralazine HCl (Apresoline) 25 mg PO QID [facility] Last Admin: 10/15/18 09:48 Dose: Not Given Cefazolin Sodium 2 gm/ Sodium (Chloride) 100 mls @ 100 mls/hr IVPB Q8H [facility]; Protocol Last Admin: 10/15/18 05:43 Dose: 100 mls/hr Levothyroxine Sodium (Synthroid) 100 mcg PO DAILY@0630 [facility] Last Admin: 10/15/18 05:43 Dose: 100 mcg Nystatin (Mycostatin Cream) 1 ea TOP TID [facility] Last Admin: 10/15/18 10:55 Dose: 1 applic Potassium Chloride (K-Dur 20 Meq Er Tab) 20 meq PO BRK [facility] Last Admin: 10/15/18 09:00 Dose: 20 meq Rivaroxaban (Xarelto) 15 mg PO DAILY [facility] Last Admin: 10/15/18 09:46 Dose: 15 mg Rosuvastatin Calcium (Crestor) 40 mg PO HS [facility] Last Admin: 10/14/18 21:28 Dose: 40 mg Silver Sulfadiazine (Silvadene 1% 20 Gm) 0 ea TOP BID [facility] Last Admin: 10/15/18 09:48 Dose: 1 applic - Labs Labs: 10/15/18 07:58 10/15/18 07:58 PT 14.4 SECONDS (9.7-12.2) H 10/13/18 18:21 INR 1.3 10/13/18 18:21 APTT 35 SECONDS (21-34) H 10/13/18 18:21 - Constitutional Appears: Well, Non-toxic - Head Exam Head Exam: ATRAUMATIC, NORMOCEPHALIC - Extremities Exam Additional comments: B/L LE focused exam: VASC: DP/PT pulses nonpalpable 2/2 edema. Temperature gradient warm to warm. +3 pitting edema present bilaterally. No hair growth appreciated. NEURO: Gross sensation diminished bilaterally. DERM: Ulcerations noted circumfirentially to legs b/l with eschar cap - no drainage, no purulence, no flucutance, no undermining. Venous stasis dermatitis present bilaterally. Erythema/rubor from digits extending proximally up lower extremities b/l. MSK: ROM limited secondary to edema. No pain on palpation noted to ulcerations. - Neurological Exam Neurological Exam: Alert, Awake, Oriented x3 - Psychiatric Exam Psychiatric exam: Normal Affect, Normal Mood Assessment and Plan - Assessment and Plan (Free Text) Assessment: 68 y/o M patient with bilateral lower extremity edema and underlying cellulitis Plan: Patient seen and evaluated at the bedside. Plan discussed with Dr. Chairez Charts, labs and vitals reviewed; Afebrile, WBC 7.9 Continue abx per ID - Ancef 2g IV Silvadene + Lotrisone applied with DANIEL wraps to b/l LE Podiatry will continue to follow up the patient while in house
[2018-10-16 02:23] VITALS: RESP 20
[2018-10-16] MEDS: ceFAZolin 2 GM in Sodium Chloride 0.9% 100 ML IVPB SCH ×3 (06:00→22:08)
[2018-10-16] MEDS: Levothyroxine 100 MCG TAB PO SCH (06:33)
[2018-10-16] MEDS: Potassium Chloride 20 mEq ER Tab PO SCH (09:00)
[2018-10-16] MEDS: Silver Sulfadiazine 1% Cream (20 gm) TOP SCH ×2 (09:44→17:02)
[2018-10-16] MEDS: Nystatin 100,000 Units/gm Cream(15 gm) TOP SCH ×3 (09:44→17:02)
[2018-10-16] MEDS: Clotrimazole/Betamethasone Cream(15 gm) TOP SCH ×2 (09:44→17:02)
--- NOTE | 2018-10-16 11:19 | CP.PCM.PN ---
Subjective - Date & Time of Evaluation Date of Evaluation: 10/15/18 Time of Evaluation: 17:20 - Subjective Subjective: Patient was seen and examined. Patient denies chest pain and dyspnea Physical Exaination - Constitutional Appears: No Acute Distress - Head Exam Head Exam: NORMAL INSPECTION, NORMOCEPHALIC - Eye Exam Eye Exam: EOMI, PERRL - ENT Exam ENT Exam: Mucous Membranes Moist - Respiratory Exam Respiratory Exam: Clear to Ausculation Bilateral, NORMAL BREATHING PATTERN. absent: Decreased Breath Sounds - Cardiovascular Exam Cardiovascular Exam: REGULAR RHYTHM - GI/Abdominal Exam GI & Abdominal Exam: Soft, Normal Bowel Sounds. absent: Distended, Tenderness - Extremities Exam Extremities Exam: Pedal Edema, Tenderness Additional comments: bilateral edema from knees down; erythema noted, no open wounds, blisters. - Neurological Exam Neurological Exam: Alert, Awake, Oriented x3 - Psychiatric Exam Psychiatric exam: Normal Affect, Normal Mood - Skin Skin Exam: Dry, Intact, Normal Color, Warm Assessment and Plan - Assessment and Plan (Free Text) Plan: Bilateral Lower Extremity Edema / Underlying Cellulitis Chronic Diastolic Heart Failure Hx Hypertension, T2DM, CAD with CABG (4 vessel, 2000; 1 stent 2015; 11/2017 4 stents), HAZEL, PVD, PAD? Imaging: - Patient reports he had a stress test this year, normal - ECHO: Normal EF - Venous Dopplers: ordered, pending lab results - Arterial Dopplers: ordered, pending lab results Management: - Pedal edema - Continue with Lasix 40mg IVP BID Follow lytes Objective - Vital Signs/Intake and Output Vital Signs (last 24 hours): Temp Pulse Resp BP Pulse Ox 98.1 F 90 20 157/82 H 96 10/16/18 07:00 10/16/18 09:36 10/16/18 07:00 10/16/18 09:41 10/16/18 07:00 Intake and Output: 10/16/18 10/16/18 06:59 18:59 Intake Total 500 Balance 500 - Medications Medications: Current Medications Betamethasone/Clotrimazole (Lotrisone) 0 gm TOP BID [facility] Last Admin: 10/16/18 09:44 Dose: 1 applic Clopidogrel Bisulfate (Plavix) 75 mg PO DAILY [facility] Last Admin: 10/16/18 09:41 Dose: 75 mg Furosemide (Lasix) 40 mg IVP BID [facility] Last Admin: 10/16/18 09:41 Dose: 40 mg Gabapentin (Neurontin) 300 mg PO TID [facility] Last Admin: 10/16/18 09:41 Dose: 300 mg Hydralazine HCl (Apresoline) 25 mg PO QID [facility] Last Admin: 10/16/18 09:39 Dose: 25 mg Cefazolin Sodium 2 gm/ Sodium (Chloride) 100 mls @ 100 mls/hr IVPB Q8H [facility]; Protocol Last Admin: 10/16/18 06:00 Dose: 100 mls/hr Levothyroxine Sodium (Synthroid) 100 mcg PO DAILY@0630 [facility] Last Admin: 10/16/18 06:33 Dose: 100 mcg Nystatin (Mycostatin Cream) 1 ea TOP TID [facility] Last Admin: 10/16/18 09:44 Dose: 1 applic Potassium Chloride (K-Dur 20 Meq Er Tab) 20 meq PO BRK [facility] Last Admin: 10/16/18 09:00 Dose: 20 meq Rivaroxaban (Xarelto) 15 mg PO DAILY [facility] Last Admin: 10/16/18 09:41 Dose: 15 mg Rosuvastatin Calcium (Crestor) 40 mg PO HS [facility] Last Admin: 10/15/18 21:22 Dose: 40 mg Silver Sulfadiazine (Silvadene 1% 20 Gm) 0 ea TOP BID [facility] Last Admin: 10/16/18 09:44 Dose: 1 applic - Labs Labs: 10/15/18 07:58 10/15/18 07:58 PT 14.4 SECONDS (9.7-12.2) H 10/13/18 18:21 INR 1.3 10/13/18 18:21 APTT 35 SECONDS (21-34) H 10/13/18 18:21
--- NOTE | 2018-10-16 13:10 | CP.PCM.PN ---
Subjective - Date & Time of Evaluation Date of Evaluation: 10/16/18 Time of Evaluation: 13:07 - Subjective Subjective: Podiatry - Dr. Chairez 68 year old male patient seen and evaluated at bedside for b/l lower extremity redness + swelling. Patient was sitting in his bed, NAD. Patient denies pain to his LE. He states that his legs improved. He denies any other pedal complaint at this time. He denies any overnight n/v/f/d/c. Objective - Vital Signs/Intake and Output Vital Signs (last 24 hours): Temp Pulse Resp BP Pulse Ox 98.1 F 90 20 157/82 H 96 10/16/18 07:00 10/16/18 09:36 10/16/18 07:00 10/16/18 09:41 10/16/18 07:00 Intake and Output: 10/16/18 10/16/18 06:59 18:59 Intake Total 500 Balance 500 - Medications Medications: Current Medications Betamethasone/Clotrimazole (Lotrisone) 0 gm TOP BID [facility] Last Admin: 10/16/18 09:44 Dose: 1 applic Clopidogrel Bisulfate (Plavix) 75 mg PO DAILY [facility] Last Admin: 10/16/18 09:41 Dose: 75 mg Furosemide (Lasix) 40 mg IVP BID [facility] Last Admin: 10/16/18 09:41 Dose: 40 mg Gabapentin (Neurontin) 300 mg PO TID [facility] Last Admin: 10/16/18 09:41 Dose: 300 mg Hydralazine HCl (Apresoline) 25 mg PO QID [facility] Last Admin: 10/16/18 09:39 Dose: 25 mg Cefazolin Sodium 2 gm/ Sodium (Chloride) 100 mls @ 100 mls/hr IVPB Q8H [facility]; [facility] Last Admin: 10/16/18 06:00 Dose: 100 mls/hr Levothyroxine Sodium (Synthroid) 100 mcg PO DAILY@0630 [facility] Last Admin: 10/16/18 06:33 Dose: 100 mcg Nystatin (Mycostatin Cream) 1 ea TOP TID [facility] Last Admin: 10/16/18 09:44 Dose: 1 applic Potassium Chloride (K-Dur 20 Meq Er Tab) 20 meq PO BRK [facility] Last Admin: 10/16/18 09:00 Dose: 20 meq Rivaroxaban (Xarelto) 15 mg PO DAILY [facility] Last Admin: 10/16/18 09:41 Dose: 15 mg Rosuvastatin Calcium (Crestor) 40 mg PO HS [facility] Last Admin: 10/15/18 21:22 Dose: 40 mg Silver Sulfadiazine (Silvadene 1% 20 Gm) 0 ea TOP BID [facility] Last Admin: 10/16/18 09:44 Dose: 1 applic - Labs Labs: 10/15/18 07:58 10/15/18 07:58 PT 14.4 SECONDS (9.7-12.2) H 10/13/18 18:21 INR 1.3 10/13/18 18:21 APTT 35 SECONDS (21-34) H 10/13/18 18:21 - Constitutional Appears: Well, Non-toxic, No Acute Distress - Head Exam Head Exam: ATRAUMATIC, NORMOCEPHALIC - Extremities Exam Additional comments: B/L LE focused exam: VASC: DP/PT pulses nonpalpable 2/2 edema. Temperature gradient warm to warm. +3 pitting edema present bilaterally. No hair growth appreciated. Erythema/rubor from digits extending proximally up lower extremities b/l (better than yesterday). NEURO: Gross sensation diminished bilaterally. DERM: Ulcerations noted circumfirentially to legs b/l with eschar cap - no drainage, no purulence, no flucutance, no undermining. Venous stasis dermatitis present bilaterally. Erythema/rubor from digits extending proximally up lower extremities b/l (better than yesterday). MSK: ROM limited secondary to edema. No pain on palpation noted to ulcerations. - Neurological Exam Neurological Exam: Alert, Awake, Oriented x3 - Psychiatric Exam Psychiatric exam: Normal Affect, Normal Mood Assessment and Plan - Assessment and Plan (Free Text) Assessment: 68 y/o M patient with bilateral lower extremity edema and underlying cellulitis Plan: Patient seen and evaluated at the bedside. Plan discussed with Dr. Chairez Charts, labs and vitals reviewed; Afebrile, WBC 7.9 (10/15) Continue abx per ID - Ancef 2g IV Silvadene + Lotrisone applied with DANIEL wraps to b/l LE Podiatry will continue to follow up the patient while in house
[2018-10-17] MEDS ORDERED: Labetalol 5mg/ml (4ml) IVP STA (02:38)
[2018-10-17] MEDS: ceFAZolin 2 GM in Sodium Chloride 0.9% 100 ML IVPB SCH (04:56)
[2018-10-17] MEDS: Levothyroxine 100 MCG TAB PO SCH ×2 (05:54→06:15)
[2018-10-17 08:41] LABS: BASO # 0.1 K/uL (0.0-0.2); BASO % 0.9 % (0.0-2.0); EOS # 0.3 K/uL (0.0-0.7); EOS % 3.4 % (0.0-4.0); LYMPH # 1.9 K/uL (1.0-4.3); LYMPH % 23.7 % (20.0-40.0); MEAN CELL VOLUME 82.5 fL (80.0-94.0); MEAN CORPUSCULAR HEMOGLOBIN 28.1 pg (27.0-31.0); MEAN PLATELET VOLUME 8.9 fL (7.2-11.7); MONO % 12.5 % (0.0-10.0); NEUT # 4.7 K/uL (1.8-7.0); NEUT % 59.5 % (50.0-75.0); NRBC % 0.2 % (0.0-2.0); RBC 4.99 Mil/uL (4.40-5.90); RED CELL DISTRIBUTION WIDTH 15.9 % (11.5-14.5); WHITE BLOOD COUNT 7.9 K/uL (4.8-10.8)
[2018-10-17 08:56] LABS: ALB/GLOB RATIO 1.4 (1.0-2.1); ALBUMIN 3.9 g/dL (3.5-5.0); ALT/SGPT 19 U/L (21-72); AST/SGOT 22 U/L (17-59); BLOOD UREA NITROGEN 19 mg/dL (9-20); CALCIUM 8.8 mg/dl (8.6-10.4); GFR NON-AFRICAN AMERICAN > 60
[2018-10-17] MEDS: Potassium Chloride 20 mEq ER Tab PO SCH (09:00)
[2018-10-17] MEDS: Clotrimazole/Betamethasone Cream(15 gm) TOP SCH ×2 (10:10→22:07)
[2018-10-17] MEDS: Nystatin 100,000 Units/gm Cream(15 gm) TOP SCH ×3 (10:10→22:07)
[2018-10-17] MEDS: Silver Sulfadiazine 1% Cream (20 gm) TOP SCH ×2 (10:11→22:08)
--- NOTE | 2018-10-17 10:30 | CP.PCM.CON ---
History of Present Illness - History of Present Illness History of Present Illness: Vascular Surgery - Dr. Beltran 68 yo m w/ extensive medical history including DM, COPD, HAZEL, PVD, diastolic HF, HTN, CAD s/p CABG and multiple stents, admitted to the hospital on 10/13 for leg swelling and SOB. Pt has been seen by cardiology and podiatry. He was sent for ABIs and venous/arterial studies over the weekend but was unable to complete them d/t pain upon compression. Currently pt denies any lower leg pain. He states that the swelling has improved. Pt states that he recently had vascular studies done in 03/[address] Bee in [place], report indicates ABIs of 0.81 and 0.83 in Right and Left Lower extremities. Pt denies any lower extremity pain with walking, he also denies any Nausea/Vomiting Fevers/Chill s/SOb or chest pains. Review of Systems - Review of Systems All systems: reviewed and no additional remarkable complaints except (as per HPI) Past Patient History - Past Social History Smoking Status: Former Smoker - CARDIAC Hx Congestive Heart Failure: Yes Hx Heart Attack: Yes - NEUROLOGICAL HX Cerebrovascular Accident: Yes - ENDOCRINE/METABOLIC Hx Diabetes Mellitus Type 2: Yes - MUSCULOSKELETAL/RHEUMATOLOGICAL Hx Arthritis: Yes Hx Falls: No - PSYCHIATRIC Hx Substance Use: No - SURGICAL HISTORY Hx Cardiac Catheterization: Yes Other/Comment: CABG x 4 stents - ANESTHESIA Hx Anesthesia: Yes Has any member of the family had a problem w/ anesthesia?: No Meds Allergies/Adverse Reactions: Allergies Allergy/AdvReac Type Severity Reaction Status Date / Time No Known Allergies Allergy Unverified 10/13/18 17:26 - Medications Medications: Current Medications Betamethasone/Clotrimazole (Lotrisone) 0 gm TOP BID [facility] Last Admin: 10/17/18 10:10 Dose: 1 applic Clopidogrel Bisulfate (Plavix) 75 mg PO DAILY [facility] Last Admin: 10/17/18 10:07 Dose: 75 mg Diltiazem HCl (Cardizem) 30 mg PO Q8 [facility] Last Admin: 10/17/18 05:54 Dose: 30 mg Furosemide (Lasix) 40 mg IVP BID [facility] Last Admin: 10/17/18 10:08 Dose: 40 mg Gabapentin (Neurontin) 300 mg PO TID [facility] Last Admin: 10/17/18 10:07 Dose: 300 mg Hydralazine HCl (Apresoline) 25 mg PO Q8 [facility] Last Admin: 10/17/18 05:54 Dose: 25 mg Cefazolin Sodium 2 gm/ Sodium (Chloride) 100 mls @ 100 mls/hr IVPB Q8H [facility]; Protocol Last Admin: 10/17/18 04:56 Dose: 100 mls/hr Levothyroxine Sodium (Synthroid) 100 mcg PO DAILY@0630 [facility] Last Admin: 10/17/18 06:15 Dose: 100 mcg Nystatin (Mycostatin Cream) 1 ea TOP TID [facility] Last Admin: 10/17/18 10:10 Dose: 1 applic Potassium Chloride (K-Dur 20 Meq Er Tab) 20 meq PO BRK [facility] Last Admin: 10/17/18 09:00 Dose: 20 meq Rivaroxaban (Xarelto) 15 mg PO DAILY [facility] Last Admin: 10/17/18 10:21 Dose: 15 mg Rosuvastatin Calcium (Crestor) 40 mg PO HS [facility] Last Admin: 10/16/18 22:07 Dose: 40 mg Silver Sulfadiazine (Silvadene 1% 20 Gm) 0 ea TOP BID [facility] Last Admin: 10/17/18 10:11 Dose: 1 applic Physical Exam - Constitutional Appears: No Acute Distress - Head Exam Head Exam: ATRAUMATIC, NORMAL INSPECTION, NORMOCEPHALIC - Eye Exam Eye Exam: Normal appearance - ENT Exam ENT Exam: Mucous Membranes Moist - Respiratory Exam Respiratory Exam: NORMAL BREATHING PATTERN. absent: Respiratory Distress - Cardiovascular Exam Cardiovascular Exam: REGULAR RHYTHM - Extremities Exam Extremities exam: Positive for: full ROM, normal capillary refill, pedal edema, pedal pulses present. Negative for: calf tenderness Additional comments: B/L lower extremity edema with venous stasis changes and small ulcerations b/l; DP and PT pulses intact - Neurological Exam Neurological exam: Alert, Oriented x3 - Psychiatric Exam Psychiatric exam: Normal Affect, Normal Mood - Skin Skin Exam: Dry, Intact Results - Vital Signs Recent Vital Signs: Last Vital Signs Temp 97.8 F 10/17/18 07:22 Pulse 79 10/17/18 10:06 Resp 20 10/17/18 07:22 BP 168/90 H 10/17/18 10:08 Pulse Ox 94 L 10/17/18 07:22 - Labs Result Diagrams: 10/17/18 08:28 10/17/18 08:28 Labs: Laboratory Results - last 24 hr 10/16/18 10/16/18 10/16/18 11:17 16:09 21:27 WBC RBC Hgb Hct MCV MCH MCHC RDW Plt Count MPV Neut % (Auto) Lymph % (Auto) Cross % (Auto) Eos % (Auto) Baso % (Auto) Neut # (Auto) Lymph # (Auto) Cross # (Auto) Eos # (Auto) Baso # (Auto) Sodium Potassium Chloride Carbon Dioxide Anion Gap BUN Creatinine Est GFR ( Amer) Est GFR (Non-Af Amer) POC Glucose (mg/dL) 131 H 122 H 181 H Random Glucose Calcium Phosphorus Magnesium Total Bilirubin AST ALT Alkaline Phosphatase Total Creatine Kinase Total Protein Albumin Globulin Albumin/Globulin Ratio 10/17/18 10/17/18 10/17/18 06:18 08:28 08:28 WBC 7.9 RBC 4.99 Hgb 14.0 Hct 41.2 MCV 82.5 MCH 28.1 MCHC 34.0 RDW 15.9 H Plt Count 229 MPV 8.9 Neut % (Auto) 59.5 Lymph % (Auto) 23.7 Cross % (Auto) 12.5 H Eos % (Auto) 3.4 Baso % (Auto) 0.9 Neut # (Auto) 4.7 Lymph # (Auto) 1.9 Cross # (Auto) 1.0 H Eos # (Auto) 0.3 Baso # (Auto) 0.1 Sodium 140 Potassium 3.7 Chloride 100 Carbon Dioxide 29 Anion Gap 15 BUN 19 Creatinine 0.9 Est GFR ( Amer) > 60 Est GFR (Non-Af Amer) > 60 POC Glucose (mg/dL) 117 H Random Glucose 132 H Calcium 8.8 Phosphorus 3.1 Magnesium 1.7 Total Bilirubin 0.6 AST 22 ALT 19 L Alkaline Phosphatase 120 Total Creatine Kinase 99 Total Protein 6.5 Albumin 3.9 Globulin 2.7 Albumin/Globulin Ratio 1.4 Assessment & Plan - Assessment and Plan (Free Text) Assessment: 68 yo M w/ multiple medical problems, admitted with B/L LE swelling and edema -B/L Lower extremity venous stasis and swelling, improved since admission per Pt. -Continue primary care as per medical team -Continue local care as per podiatry -No surgical intervention needed at this time Dw Dr. Ruby aZmora PGY4
[2018-10-17] MEDS: cefTRIAXone 2 GM in Sodium Chloride 0.9% 100 ML IVPB SCH (12:19)
--- NOTE | 2018-10-17 17:35 | CP.PCM.PN ---
Subjective - Date & Time of Evaluation Date of Evaluation: 10/17/18 Time of Evaluation: 17:34 - Subjective Subjective: Podiatry - Dr. Chairez 68 year old male patient seen and evaluated at bedside for b/l lower extremity redness + swelling. Patient was sitting in his bed, NAD. Patient denies pain to his LE. He states that his legs improved. He denies any other pedal complaint at this time. He denies any overnight n/v/f/d/c. Objective - Vital Signs/Intake and Output Vital Signs (last 24 hours): Temp Pulse Resp BP Pulse Ox 97.7 F 70 20 201/74 H 95 10/17/18 15:00 10/17/18 15:00 10/17/18 15:00 10/17/18 15:00 10/17/18 15:00 Intake and Output: 10/17/18 10/17/18 06:59 18:59 Intake Total 600 Output Total 100 1000 Balance -100 -400 - Medications Medications: Current Medications Betamethasone/Clotrimazole (Lotrisone) 0 gm TOP BID [facility] Last Admin: 10/17/18 10:10 Dose: 1 applic Clopidogrel Bisulfate (Plavix) 75 mg PO DAILY [facility] Last Admin: 10/17/18 10:07 Dose: 75 mg Diltiazem HCl (Cardizem) 30 mg PO Q8 [facility] Last Admin: 10/17/18 13:34 Dose: 30 mg Furosemide (Lasix) 40 mg IVP BID [facility] Last Admin: 10/17/18 10:08 Dose: 40 mg Gabapentin (Neurontin) 300 mg PO TID [facility] Last Admin: 10/17/18 13:34 Dose: 300 mg Hydralazine HCl (Apresoline) 25 mg PO Q8 [facility] Last Admin: 10/17/18 13:33 Dose: 25 mg Ceftriaxone Sodium 2 gm/ (Sodium Chloride) 100 mls @ 100 mls/hr IVPB Q24H [facility]; Protocol Last Admin: 10/17/18 12:19 Dose: 100 mls/hr Levothyroxine Sodium (Synthroid) 100 mcg PO DAILY@0630 [facility] Last Admin: 10/17/18 06:15 Dose: 100 mcg Nystatin (Mycostatin Cream) 1 ea TOP TID [facility] Last Admin: 10/17/18 13:34 Dose: 1 applic Potassium Chloride (K-Dur 20 Meq Er Tab) 20 meq PO BRK [facility] Last Admin: 10/17/18 09:00 Dose: 20 meq Rivaroxaban (Xarelto) 15 mg PO DAILY [facility] Last Admin: 10/17/18 10:21 Dose: 15 mg Rosuvastatin Calcium (Crestor) 40 mg PO HS [facility] Last Admin: 10/16/18 22:07 Dose: 40 mg Silver Sulfadiazine (Silvadene 1% 20 Gm) 0 ea TOP BID [facility] Last Admin: 10/17/18 10:11 Dose: 1 applic - Labs Labs: 10/17/18 08:28 10/17/18 08:28 PT 14.4 SECONDS (9.7-12.2) H 10/13/18 18:21 INR 1.3 10/13/18 18:21 APTT 35 SECONDS (21-34) H 10/13/18 18:21 - Constitutional Appears: Well, Non-toxic, No Acute Distress - Head Exam Head Exam: ATRAUMATIC, NORMOCEPHALIC - Extremities Exam Additional comments: B/L LE focused exam: VASC: DP/PT pulses nonpalpable 2/2 edema. Temperature gradient warm to warm. +3 pitting edema present bilaterally. No hair growth appreciated. Erythema/rubor from digits extending proximally up lower extremities b/l (better than yesterday). NEURO: Gross sensation diminished bilaterally. DERM: Ulcerations noted circumfirentially to legs b/l with eschar cap - no drainage, no purulence, no flucutance, no undermining. Venous stasis dermatitis present bilaterally. Erythema/rubor from digits extending proximally up lower extremities b/l (better than yesterday). MSK: ROM limited secondary to edema. No pain on palpation noted to ulcerations. - Neurological Exam Neurological Exam: Alert, Awake, Oriented x3 - Psychiatric Exam Psychiatric exam: Normal Affect, Normal Mood Assessment and Plan - Assessment and Plan (Free Text) Assessment: 68 y/o M patient with bilateral lower extremity edema and underlying cellulitis Plan: Patient seen and evaluated at the bedside. Plan discussed with Dr. Chairez Charts, labs and vitals reviewed; Afebrile, WBC 7.9 (10/15) Continue abx per ID - Ancef 2g IV Silvadene + Lotrisone applied with DANIEL wraps to b/l LE Podiatry will continue to follow up the patient while in house
--- NOTE | 2018-10-17 19:27 | CP.PCM.PN ---
Subjective - Date & Time of Evaluation Date of Evaluation: 10/15/18 Time of Evaluation: 19:24 - Subjective Subjective: INFECTIOUS DISEASE PROGRESS NOTES REANNA MOREL MD, FACP 10/15/2018 CHART REVIEWED EXAM NOTED CASE DISCUSSED 68 year old male patient seen and evaluated at bedside for b/l lower extremity redness + swelling. Patient was sitting in his bed, NAD. Patient states that his burning neuropathy pain still bothers him but it's well controlled by the Gabapentin. He denies any other pedal complaint at this time. He denies any overnight n/v/f/d/c. CLINICALLY RESPONDING TO BED REST, IV LASIX, AND EMPIRIC ANTIBIOTICS WILL NEED PROLONGED CARDIOLOGY MANAGEMENT AND CO-MEDICAL MANAGEMENT IV LASIX, IV ANTIBIOTICS, PENDING C/S RESULTS. Objective - Vital Signs/Intake and Output Vital Signs (last 24 hours): Temp Pulse Resp BP Pulse Ox 97.7 F 70 20 201/74 H 95 10/17/18 15:00 10/17/18 15:00 10/17/18 15:00 10/17/18 15:00 10/17/18 15:00 Intake and Output: 10/17/18 10/18/18 18:59 06:59 Intake Total 600 Output Total 1000 Balance -400 - Medications Medications: Current Medications Betamethasone/Clotrimazole (Lotrisone) 0 gm TOP BID [facility] Last Admin: 10/17/18 10:10 Dose: 1 applic Clopidogrel Bisulfate (Plavix) 75 mg PO DAILY [facility] Last Admin: 10/17/18 10:07 Dose: 75 mg Diltiazem HCl (Cardizem) 30 mg PO Q8 [facility] Last Admin: 10/17/18 13:34 Dose: 30 mg Furosemide (Lasix) 40 mg IVP BID [facility] Last Admin: 10/17/18 10:08 Dose: 40 mg Gabapentin (Neurontin) 300 mg PO TID [facility] Last Admin: 10/17/18 13:34 Dose: 300 mg Hydralazine HCl (Apresoline) 25 mg PO Q8 [facility] Last Admin: 10/17/18 13:33 Dose: 25 mg Ceftriaxone Sodium 2 gm/ (Sodium Chloride) 100 mls @ 100 mls/hr IVPB Q24H [facility]; Protocol Last Admin: 10/17/18 12:19 Dose: 100 mls/hr Levothyroxine Sodium (Synthroid) 100 mcg PO DAILY@0630 [facility] Last Admin: 10/17/18 06:15 Dose: 100 mcg Nystatin (Mycostatin Cream) 1 ea TOP TID [facility] Last Admin: 10/17/18 13:34 Dose: 1 applic Potassium Chloride (K-Dur 20 Meq Er Tab) 20 meq PO BRK [facility] Last Admin: 10/17/18 09:00 Dose: 20 meq Rivaroxaban (Xarelto) 15 mg PO DAILY [facility] Last Admin: 10/17/18 10:21 Dose: 15 mg Rosuvastatin Calcium (Crestor) 40 mg PO HS [facility] Last Admin: 10/16/18 22:07 Dose: 40 mg Silver Sulfadiazine (Silvadene 1% 20 Gm) 0 ea TOP BID [facility] Last Admin: 10/17/18 10:11 Dose: 1 applic - Labs Labs: 10/17/18 08:28 10/17/18 08:28 PT 14.4 SECONDS (9.7-12.2) H 10/13/18 18:21 INR 1.3 10/13/18 18:21 APTT 35 SECONDS (21-34) H 10/13/18 18:21
--- NOTE | 2018-10-17 19:30 | CP.PCM.PN ---
Subjective - Date & Time of Evaluation Date of Evaluation: 10/17/18 Time of Evaluation: 19:28 - Subjective Subjective: INFECTIOUS DISEASE PROGRESS NOTES REANNA MOREL MD, FACP 10/17/2018 CHART REVIEWED PT EXAMINED CASE DISCUSSED 68 year old male patient seen and evaluated at bedside for b/l lower extremity redness + swelling. Patient was sitting in his bed, NAD. Patient denies pain to his LE. He states that his legs improved. He denies any other pedal complaint at this time. He denies any overnight n/v/f/d/c. Objective - Vital Signs/Intake and Output Vital Signs (last 24 hours): Temp Pulse Resp BP Pulse Ox 97.7 F 70 20 201/74 H 95 10/17/18 15:00 10/17/18 15:00 10/17/18 15:00 10/17/18 15:00 10/17/18 15:00 Intake and Output: 10/17/18 10/17/18 06:59 18:59 Intake Total 600 Output Total 100 1000 Balance -100 -400 - Medications Medications: Current Medications Betamethasone/Clotrimazole (Lotrisone) 0 gm TOP BID [facility] Last Admin: 10/17/18 10:10 Dose: 1 applic Clopidogrel Bisulfate (Plavix) 75 mg PO DAILY [facility] Last Admin: 10/17/18 10:07 Dose: 75 mg Diltiazem HCl (Cardizem) 30 mg PO Q8 [facility] Last Admin: 10/17/18 13:34 Dose: 30 mg Furosemide (Lasix) 40 mg IVP BID [facility] Last Admin: 10/17/18 10:08 Dose: 40 mg Gabapentin (Neurontin) 300 mg PO TID [facility] Last Admin: 10/17/18 13:34 Dose: 300 mg Hydralazine HCl (Apresoline) 25 mg PO Q8 [facility] Last Admin: 10/17/18 13:33 Dose: 25 mg Ceftriaxone Sodium 2 gm/ (Sodium Chloride) 100 mls @ 100 mls/hr IVPB Q24H [facility]; Protocol Last Admin: 10/17/18 12:19 Dose: 100 mls/hr Levothyroxine Sodium (Synthroid) 100 mcg PO DAILY@0630 [facility] Last Admin: 10/17/18 06:15 Dose: 100 mcg Nystatin (Mycostatin Cream) 1 ea TOP TID [facility] Last Admin: 10/17/18 13:34 Dose: 1 applic Potassium Chloride (K-Dur 20 Meq Er Tab) 20 meq PO BRK [facility] Last Admin: 10/17/18 09:00 Dose: 20 meq Rivaroxaban (Xarelto) 15 mg PO DAILY [facility] Last Admin: 10/17/18 10:21 Dose: 15 mg Rosuvastatin Calcium (Crestor) 40 mg PO HS [facility] Last Admin: 10/16/18 22:07 Dose: 40 mg Silver Sulfadiazine (Silvadene 1% 20 Gm) 0 ea TOP BID [facility] Last Admin: 10/17/18 10:11 Dose: 1 applic - Labs Labs: 10/17/18 08:28 10/17/18 08:28 PT 14.4 SECONDS (9.7-12.2) H 10/13/18 18:21 INR 1.3 10/13/18 18:21 APTT 35 SECONDS (21-34) H 10/13/18 18:21 - Constitutional Appears: Well, Non-toxic, No Acute Distress - Head Exam Head Exam: ATRAUMATIC, NORMOCEPHALIC - Extremities Exam Additional comments: B/L LE focused exam: VASC: DP/PT pulses nonpalpable 2/2 edema. Temperature gradient warm to warm. +3 pitting edema present bilaterally. No hair growth appreciated. Erythema/rubor from digits extending proximally up lower extremities b/l (better than yesterday). NEURO: Gross sensation diminished bilaterally. DERM: Ulcerations noted circumfirentially to legs b/l with eschar cap - no drainage, no purulence, no flucutance, no undermining. Venous stasis dermatitis present bilaterally. Erythema/rubor from digits extending proximally up lower extremities b/l (better than yesterday). MSK: ROM limited secondary to edema. No pain on palpation noted to ulcerations. - Neurological Exam Neurological Exam: Alert, Awake, Oriented x3 - Psychiatric Exam Psychiatric exam: Normal Affect, Normal Mood Assessment and Plan - Assessment and Plan (Free Text) Assessment: 68 y/o M patient with bilateral lower extremity edema and underlying cellulitis Plan: Patient seen and evaluated at the bedside. Charts, labs and vitals reviewed; Afebrile, WBC 7.9 (10/15) Continue abx per ID -ROCEPHIN 2GM IVPB OD Silvadene + Lotrisone applied with DANIEL wraps to b/l LE Objective - Vital Signs/Intake and Output Vital Signs (last 24 hours): Temp Pulse Resp BP Pulse Ox 97.7 F 70 20 201/74 H 95 10/17/18 15:00 10/17/18 15:00 10/17/18 15:00 10/17/18 15:00 10/17/18 15:00 Intake and Output: 10/17/18 10/18/18 18:59 06:59 Intake Total 600 Output Total 1000 Balance -400 - Medications Medications: Current Medications Betamethasone/Clotrimazole (Lotrisone) 0 gm TOP BID [facility] Last Admin: 10/17/18 10:10 Dose: 1 applic Clopidogrel Bisulfate (Plavix) 75 mg PO DAILY [facility] Last Admin: 10/17/18 10:07 Dose: 75 mg Diltiazem HCl (Cardizem) 30 mg PO Q8 [facility] Last Admin: 10/17/18 13:34 Dose: 30 mg Furosemide (Lasix) 40 mg IVP BID [facility] Last Admin: 10/17/18 10:08 Dose: 40 mg Gabapentin (Neurontin) 300 mg PO TID [facility] Last Admin: 10/17/18 13:34 Dose: 300 mg Hydralazine HCl (Apresoline) 25 mg PO Q8 [facility] Last Admin: 10/17/18 13:33 Dose: 25 mg Ceftriaxone Sodium 2 gm/ (Sodium Chloride) 100 mls @ 100 mls/hr IVPB Q24H [facility]; Protocol Last Admin: 10/17/18 12:19 Dose: 100 mls/hr Levothyroxine Sodium (Synthroid) 100 mcg PO DAILY@0630 [facility] Last Admin: 10/17/18 06:15 Dose: 100 mcg Nystatin (Mycostatin Cream) 1 ea TOP TID [facility] Last Admin: 10/17/18 13:34 Dose: 1 applic Potassium Chloride (K-Dur 20 Meq Er Tab) 20 meq PO BRK [facility] Last Admin: 10/17/18 09:00 Dose: 20 meq Rivaroxaban (Xarelto) 15 mg PO DAILY [facility] Last Admin: 10/17/18 10:21 Dose: 15 mg Rosuvastatin Calcium (Crestor) 40 mg PO HS [facility] Last Admin: 10/16/18 22:07 Dose: 40 mg Silver Sulfadiazine (Silvadene 1% 20 Gm) 0 ea TOP BID [facility] Last Admin: 10/17/18 10:11 Dose: 1 applic - Labs Labs: 10/17/18 08:28 10/17/18 08:28 PT 14.4 SECONDS (9.7-12.2) H 10/13/18 18:21 INR 1.3 10/13/18 18:21 APTT 35 SECONDS (21-34) H 10/13/18 18:21
[2018-10-18] MEDS: Levothyroxine 100 MCG TAB PO SCH (05:45)
[2018-10-18] MEDS ORDERED: Tramadol 25 mg PO PRN (08:38)
--- NOTE | 2018-10-18 08:38 | CP.PCM.PN ---
Subjective - Date & Time of Evaluation Date of Evaluation: 10/18/18 Time of Evaluation: 08:35 - Subjective Subjective: Patient is now sitting up comfortably not in any distress at this time. Bilateral leg swelling still noted, but better than before. On examination: Vital signs stable. Chest good air entry Regular hospital noted. Nontender abdomen. Extremities significant edema bilaterally noted. Patient had a significant weight loss now following the intravenous IV Lasix. Labs yesterday reviewed Renal functions is normal Patient supposed to have the venous Doppler as well as arterial Doppler currently pending. Patient is being seen by infectious disease, conditioner tumbler. As well as plate grainer Stents in the past pulmonary hypertension obstructive sleep apnea on CPAP admitted with worsening shortness of breath and possible diastolic heart failure associated with pulmonary hypertension with bilateral pedal edema and anasarca patient is slowly improving he will be needing more diuretics will monitor the daily weight management by conditioner tumbler and will follow the patient assessment and recognition: Objective - Vital Signs/Intake and Output Vital Signs (last 24 hours): Temp Pulse Resp BP Pulse Ox 97.7 F 94 H 20 163/91 H 97 10/18/18 08:16 10/18/18 08:16 10/18/18 08:16 10/18/18 08:16 10/18/18 08:16 Intake and Output: 10/18/18 10/18/18 06:59 18:59 Intake Total 240 Output Total 1425 Balance -1185 - Medications Medications: Current Medications Betamethasone/Clotrimazole (Lotrisone) 0 gm TOP BID [facility] Last Admin: 10/17/18 22:07 Dose: 1 applic Clopidogrel Bisulfate (Plavix) 75 mg PO DAILY [facility] Last Admin: 10/17/18 10:07 Dose: 75 mg Diltiazem HCl (Cardizem) 30 mg PO Q8 [facility] Last Admin: 10/18/18 05:45 Dose: 30 mg Furosemide (Lasix) 40 mg IVP BID [facility] Last Admin: 10/17/18 22:12 Dose: 40 mg Gabapentin (Neurontin) 300 mg PO TID [facility] Last Admin: 10/17/18 19:00 Dose: 300 mg Hydralazine HCl (Apresoline) 25 mg PO Q8 [facility] Last Admin: 10/18/18 05:46 Dose: 25 mg Ceftriaxone Sodium 2 gm/ (Sodium Chloride) 100 mls @ 100 mls/hr IVPB Q24H [facility]; Protocol Last Admin: 10/17/18 12:19 Dose: 100 mls/hr Levothyroxine Sodium (Synthroid) 100 mcg PO DAILY@0630 [facility] Last Admin: 10/18/18 05:45 Dose: 100 mcg Losartan Potassium (Cozaar) 50 mg PO DAILY [facility] Nystatin (Mycostatin Cream) 1 ea TOP TID [facility] Last Admin: 10/17/18 22:07 Dose: 1 applic Potassium Chloride (K-Dur 20 Meq Er Tab) 20 meq PO BRK [facility] Last Admin: 10/17/18 09:00 Dose: 20 meq Rivaroxaban (Xarelto) 15 mg PO DAILY [facility] Last Admin: 10/17/18 10:21 Dose: 15 mg Rosuvastatin Calcium (Crestor) 40 mg PO HS [facility] Last Admin: 10/17/18 22:06 Dose: 40 mg Silver Sulfadiazine (Silvadene 1% 20 Gm) 0 ea TOP BID [facility] Last Admin: 10/17/18 22:08 Dose: 1 applic - Labs Labs: 10/17/18 08:28 10/17/18 08:28 PT 14.4 SECONDS (9.7-12.2) H 10/13/18 18:21 INR 1.3 10/13/18 18:21 APTT 35 SECONDS (21-34) H 10/13/18 18:21
[2018-10-18] MEDS: Potassium Chloride 20 mEq ER Tab PO SCH (08:57)
[2018-10-18] MEDS: Silver Sulfadiazine 1% Cream (20 gm) TOP SCH ×2 (10:10→17:59)
[2018-10-18] MEDS: Nystatin 100,000 Units/gm Cream(15 gm) TOP SCH ×3 (10:10→17:59)
[2018-10-18] MEDS: Clotrimazole/Betamethasone Cream(15 gm) TOP SCH ×2 (10:10→17:59)
[2018-10-18] MEDS: cefTRIAXone 2 GM in Sodium Chloride 0.9% 100 ML IVPB SCH (11:58)
--- NOTE | 2018-10-18 12:35 | CP.PCM.PN ---
Subjective - Date & Time of Evaluation Date of Evaluation: 10/18/18 Time of Evaluation: 12:35 - Subjective Subjective: Podiatry Progress Note - Dr. Chairez 68M seen and evaluated at bedside for b/l lower extremity edema. NAD. No acute events overnight. Patient in bed legs in dependent position; nursing changed LE dressings prior to visit. No new lower extremity complaints per patient, states lower extremity swelling has improved since admission. Denies n/v/f/d/c. Objective - Vital Signs/Intake and Output Vital Signs (last 24 hours): Temp Pulse Resp BP Pulse Ox 97.7 F 73 20 153/71 H 97 10/18/18 08:16 10/18/18 10:08 10/18/18 08:16 10/18/18 10:10 10/18/18 08:16 Intake and Output: 10/18/18 10/18/18 06:59 18:59 Intake Total 240 Output Total 1425 Balance -1185 - Medications Medications: Current Medications Betamethasone/Clotrimazole (Lotrisone) 0 gm TOP BID [facility] Last Admin: 10/18/18 10:10 Dose: 1 applic Clopidogrel Bisulfate (Plavix) 75 mg PO DAILY [facility] Last Admin: 10/18/18 10:10 Dose: 75 mg Diltiazem HCl (Cardizem) 30 mg PO Q8 [facility] Last Admin: 10/18/18 05:45 Dose: 30 mg Furosemide (Lasix) 40 mg IVP BID [facility] Last Admin: 10/18/18 10:10 Dose: 40 mg Gabapentin (Neurontin) 300 mg PO TID [facility] Last Admin: 10/18/18 10:10 Dose: 300 mg Hydralazine HCl (Apresoline) 25 mg PO Q8 [facility] Last Admin: 10/18/18 05:46 Dose: 25 mg Ceftriaxone Sodium 2 gm/ (Sodium Chloride) 100 mls @ 100 mls/hr IVPB Q24H [facility]; Protocol Last Admin: 10/18/18 11:58 Dose: 100 mls/hr Levothyroxine Sodium (Synthroid) 100 mcg PO DAILY@0630 [facility] Last Admin: 10/18/18 05:45 Dose: 100 mcg Losartan Potassium (Cozaar) 50 mg PO DAILY [facility] Last Admin: 10/18/18 10:10 Dose: 50 mg Nystatin (Mycostatin Cream) 1 ea TOP TID [facility] Last Admin: 10/18/18 10:10 Dose: 1 applic Potassium Chloride (K-Dur 20 Meq Er Tab) 20 meq PO BRK [facility] Last Admin: 10/18/18 08:57 Dose: 20 meq Rivaroxaban (Xarelto) 15 mg PO DAILY [facility] Last Admin: 10/18/18 10:10 Dose: 15 mg Rosuvastatin Calcium (Crestor) 40 mg PO HS [facility] Last Admin: 10/17/18 22:06 Dose: 40 mg Silver Sulfadiazine (Silvadene 1% 20 Gm) 0 ea TOP BID [facility] Last Admin: 10/18/18 10:10 Dose: 1 applic Tramadol HCl (Ultram) 25 mg PO TID PRN PRN Reason: Pain, moderate (4-7) - Labs Labs: 10/17/18 08:28 10/17/18 08:28 PT 14.4 SECONDS (9.7-12.2) H 10/13/18 18:21 INR 1.3 10/13/18 18:21 APTT 35 SECONDS (21-34) H 10/13/18 18:21 - Constitutional Appears: Well, Non-toxic, No Acute Distress - Extremities Exam Additional comments: Dressings to bilateral LE clean/dry/intact with no strikethrough present. Neurovascular status intact to digits b/l ROM present w/o pain - Neurological Exam Neurological Exam: Alert, Awake, Oriented x3 - Psychiatric Exam Psychiatric exam: Normal Affect, Normal Mood Assessment and Plan - Assessment and Plan (Free Text) Assessment: 68Mwith bilateral lower extremity edema and underlying cellulitis Plan: Patient seen and evaluated alongside attending, Dr. Mihaela June Continue abx - Ceftriaxone IV LE edema improving, will continue to monitor Continue lower extremity wound care: Silvadene + Lotrisone, DANIEL wraps b/l Activity: FWB b/l LE Podiatry will continue to follow
--- NOTE | 2018-10-18 19:54 | CP.PCM.PN ---
Subjective - Date & Time of Evaluation Date of Evaluation: 10/18/18 Time of Evaluation: 19:53 - Subjective Subjective: INFECTIOUS DISEASE PROGRESS NOTES REANNA MOREL MD, FACP 10/18/2018 CHART REVIEWED PT EXAMINED CASE DISCUSSED Patient is now sitting up comfortably not in any distress at this time. Bilateral leg swelling still noted, but better than before. On examination: Vital signs stable. Chest good air entry Regular hospital noted. Nontender abdomen. Extremities significant edema bilaterally noted. Patient had a significant weight loss now following the intravenous IV Lasix. Labs yesterday reviewed Renal functions is normal Patient supposed to have the venous Doppler as well as arterial Doppler currently pending. Patient is being seen by infectious disease, oil heater installer. As well as filler feeder Stents in the past pulmonary hypertension obstructive sleep apnea on CPAP admitted with worsening shortness of breath and possible diastolic heart failure associated with pulmonary hypertension with bilateral pedal edema and anasarca patient is slowly improving he will be needing more diuretics will monitor the daily weight management by oil heater installer and will follow the patient assessment and recognition: Objective - Vital Signs/Intake and Output Vital Signs (last 24 hours): Temp Pulse Resp BP Pulse Ox 97.7 F 94 H 20 163/91 H 97 10/18/18 08:16 10/18/18 08:16 10/18/18 08:16 10/18/18 08:16 10/18/18 08:16 Intake and Output: 10/18/18 10/18/18 06:59 18:59 Intake Total 240 Output Total 1425 Balance -1185 - Medications Medications: Current Medications Betamethasone/Clotrimazole (Lotrisone) 0 gm TOP BID [facility] Last Admin: 10/17/18 22:07 Dose: 1 applic Clopidogrel Bisulfate (Plavix) 75 mg PO DAILY [facility] Last Admin: 10/17/18 10:07 Dose: 75 mg Diltiazem HCl (Cardizem) 30 mg PO Q8 [facility] Last Admin: 10/18/18 05:45 Dose: 30 mg Furosemide (Lasix) 40 mg IVP BID [facility] Last Admin: 10/17/18 22:12 Dose: 40 mg Gabapentin (Neurontin) 300 mg PO TID [facility] Last Admin: 10/17/18 19:00 Dose: 300 mg Hydralazine HCl (Apresoline) 25 mg PO Q8 [facility] Last Admin: 10/18/18 05:46 Dose: 25 mg Ceftriaxone Sodium 2 gm/ (Sodium Chloride) 100 mls @ 100 mls/hr IVPB Q24H [facility]; Protocol Last Admin: 10/17/18 12:19 Dose: 100 mls/hr Levothyroxine Sodium (Synthroid) 100 mcg PO DAILY@0630 [facility] Last Admin: 10/18/18 05:45 Dose: 100 mcg Losartan Potassium (Cozaar) 50 mg PO DAILY [facility] Nystatin (Mycostatin Cream) 1 ea TOP TID [facility] Last Admin: 10/17/18 22:07 Dose: 1 applic Potassium Chloride (K-Dur 20 Meq Er Tab) 20 meq PO BRK [facility] Last Admin: 10/17/18 09:00 Dose: 20 meq Rivaroxaban (Xarelto) 15 mg PO DAILY [facility] Last Admin: 10/17/18 10:21 Dose: 15 mg Rosuvastatin Calcium (Crestor) 40 mg PO HS [facility] Last Admin: 10/17/18 22:06 Dose: 40 mg Silver Sulfadiazine (Silvadene 1% 20 Gm) 0 ea TOP BID [facility] Last Admin: 10/17/18 22:08 Dose: 1 applic - Labs Labs: 10/17/18 08:28 10/17/18 08:28 PT 14.4 SECONDS (9.7-12.2) H 10/13/18 18:21 INR 1.3 10/13/18 18:21 APTT 35 SECONDS (21-34) H 10/13/18 18:21 Objective - Vital Signs/Intake and Output Vital Signs (last 24 hours): Temp Pulse Resp BP Pulse Ox 97.6 F 60 20 145/74 95 10/18/18 15:00 10/18/18 15:00 10/18/18 15:00 10/18/18 17:58 10/18/18 15:00 - Medications Medications: Current Medications Betamethasone/Clotrimazole (Lotrisone) 0 gm TOP BID [facility] Last Admin: 10/18/18 17:59 Dose: 1 applic Clopidogrel Bisulfate (Plavix) 75 mg PO DAILY [facility] Last Admin: 10/18/18 10:10 Dose: 75 mg Diltiazem HCl (Cardizem) 30 mg PO Q8 [facility] Last Admin: 10/18/18 13:50 Dose: 30 mg Furosemide (Lasix) 40 mg IVP BID [facility] Last Admin: 10/18/18 17:58 Dose: 40 mg Gabapentin (Neurontin) 300 mg PO TID [facility] Last Admin: 10/18/18 18:00 Dose: 300 mg Hydralazine HCl (Apresoline) 25 mg PO Q8 [facility] Last Admin: 10/18/18 13:50 Dose: 25 mg Ceftriaxone Sodium 2 gm/ (Sodium Chloride) 100 mls @ 100 mls/hr IVPB Q24H [facility]; Protocol Last Admin: 10/18/18 11:58 Dose: 100 mls/hr Levothyroxine Sodium (Synthroid) 100 mcg PO DAILY@0630 [facility] Last Admin: 10/18/18 05:45 Dose: 100 mcg Losartan Potassium (Cozaar) 50 mg PO DAILY [facility] Last Admin: 10/18/18 10:10 Dose: 50 mg Nystatin (Mycostatin Cream) 1 ea TOP TID [facility] Last Admin: 10/18/18 17:59 Dose: 1 applic Potassium Chloride (K-Dur 20 Meq Er Tab) 20 meq PO BRK [facility] Last Admin: 10/18/18 08:57 Dose: 20 meq Rivaroxaban (Xarelto) 15 mg PO DAILY [facility] Last Admin: 10/18/18 10:10 Dose: 15 mg Rosuvastatin Calcium (Crestor) 40 mg PO HS [facility] Last Admin: 10/17/18 22:06 Dose: 40 mg Silver Sulfadiazine (Silvadene 1% 20 Gm) 0 ea TOP BID [facility] Last Admin: 10/18/18 17:59 Dose: 1 applic Tramadol HCl (Ultram) 25 mg PO TID PRN PRN Reason: Pain, moderate (4-7) - Labs Labs: 10/17/18 08:28 10/17/18 08:28 PT 14.4 SECONDS (9.7-12.2) H 18 18:21 INR 1.3 10/13/18 18:21 APTT 35 SECONDS (21-34) H 10/13/18 18:21
--- NOTE | 2018-10-18 22:23 | CP.PCM.PN ---
Subjective - Date & Time of Evaluation Date of Evaluation: 10/18/18 Time of Evaluation: 13:00 - Subjective Subjective: Patient seen and evaluated Denies chest pain and dyspnea Pedal edema improving Leg doppler study pending Patient will f/u Dr. Bird García ([place]) as out patient for diastolic CHF and pulmonary HTN Objective - Vital Signs/Intake and Output Vital Signs (last 24 hours): Temp Pulse Resp BP Pulse Ox 97.6 F 60 20 145/74 95 10/18/18 15:00 10/18/18 15:00 10/18/18 15:00 10/18/18 17:58 10/18/18 15:00 - Medications Medications: Current Medications Betamethasone/Clotrimazole (Lotrisone) 0 gm TOP BID [facility] Last Admin: 10/18/18 17:59 Dose: 1 applic Clopidogrel Bisulfate (Plavix) 75 mg PO DAILY [facility] Last Admin: 10/18/18 10:10 Dose: 75 mg Diltiazem HCl (Cardizem) 30 mg PO Q8 [facility] Last Admin: 10/18/18 22:02 Dose: 30 mg Furosemide (Lasix) 40 mg IVP BID [facility] Last Admin: 10/18/18 17:58 Dose: 40 mg Gabapentin (Neurontin) 300 mg PO TID [facility] Last Admin: 10/18/18 18:00 Dose: 300 mg Hydralazine HCl (Apresoline) 25 mg PO Q8 [facility] Last Admin: 10/18/18 22:04 Dose: 25 mg Ceftriaxone Sodium 2 gm/ (Sodium Chloride) 100 mls @ 100 mls/hr IVPB Q24H [facility]; Protocol Last Admin: 10/18/18 11:58 Dose: 100 mls/hr Levothyroxine Sodium (Synthroid) 100 mcg PO DAILY@0630 [facility] Last Admin: 10/18/18 05:45 Dose: 100 mcg Losartan Potassium (Cozaar) 50 mg PO DAILY [facility] Last Admin: 10/18/18 10:10 Dose: 50 mg Nystatin (Mycostatin Cream) 1 ea TOP TID [facility] Last Admin: 10/18/18 17:59 Dose: 1 applic Potassium Chloride (K-Dur 20 Meq Er Tab) 20 meq PO BRK [facility] Last Admin: 10/18/18 08:57 Dose: 20 meq Rivaroxaban (Xarelto) 15 mg PO DAILY [facility] Last Admin: 10/18/18 10:10 Dose: 15 mg Rosuvastatin Calcium (Crestor) 40 mg PO HS [facility] Last Admin: 10/18/18 22:02 Dose: 40 mg Silver Sulfadiazine (Silvadene 1% 20 Gm) 0 ea TOP BID [facility] Last Admin: 10/18/18 17:59 Dose: 1 applic Tramadol HCl (Ultram) 25 mg PO TID PRN PRN Reason: Pain, moderate (4-7) - Labs Labs: 10/17/18 08:28 10/17/18 08:28 PT 14.4 SECONDS (9.7-12.2) H 10/13/18 18:21 INR 1.3 10/13/18 18:21 APTT 35 SECONDS (21-34) H 10/13/18 18:21
[2018-10-19] MEDS: Levothyroxine 100 MCG TAB PO SCH (06:55)
[2018-10-19] MEDS: Potassium Chloride 20 mEq ER Tab PO SCH (08:44)
[2018-10-19 08:49] LABS: BASO # 0.1 K/uL (0.0-0.2); BASO % 0.8 % (0.0-2.0); EOS # 0.3 K/uL (0.0-0.7); EOS % 3.6 % (0.0-4.0); HEMOGLOBIN 14.1 g/dL (12.0-18.0); LYMPH # 1.9 K/uL (1.0-4.3); LYMPH % 24.8 % (20.0-40.0); MEAN CELL VOLUME 83.1 fL (80.0-94.0); MEAN CORPUSCULAR HEMOGLOBIN 27.9 pg (27.0-31.0); MEAN CORPUSCULAR HGB CONC 33.5 g/dL (33.0-37.0); MEAN PLATELET VOLUME 9.2 fL (7.2-11.7); MONO # 0.9 K/uL (0.0-0.8); MONO % 12.4 % (0.0-10.0); NEUT # 4.4 K/uL (1.8-7.0); NEUT % 58.4 % (50.0-75.0); NRBC % 0.1 % (0.0-2.0); RBC 5.05 Mil/uL (4.40-5.90); WHITE BLOOD COUNT 7.5 K/uL (4.8-10.8)
[2018-10-19 08:56] LABS: ALB/GLOB RATIO 1.5 (1.0-2.1); ALBUMIN 4.1 g/dL (3.5-5.0); ALT/SGPT 19 U/L (21-72); AST/SGOT 22 U/L (17-59); BLOOD UREA NITROGEN 19 mg/dL (9-20); CALCIUM 9.2 mg/dl (8.6-10.4); GFR NON-AFRICAN AMERICAN > 60
[2018-10-19] MEDS: Nystatin 100,000 Units/gm Cream(15 gm) TOP SCH ×3 (11:38→18:28)
[2018-10-19] MEDS: Silver Sulfadiazine 1% Cream (20 gm) TOP SCH ×2 (11:41→18:28)
[2018-10-19] MEDS: Clotrimazole/Betamethasone Cream(15 gm) TOP SCH ×2 (11:41→18:28)
[2018-10-19] MEDS: cefTRIAXone 2 GM in Sodium Chloride 0.9% 100 ML IVPB SCH (11:41)
--- NOTE | 2018-10-19 13:24 | VASCLAB ---
Date of service: 10/19/2018 PROCEDURE: Lower Extremity Venous Duplex Exam. HISTORY: Swelling, DVT. PRIORS: None. TECHNIQUE: Bilateral common femoral, femoral, popliteal and posterior tibial, peroneal and great saphenous veins were evaluated. Flow was assessed with color Doppler, compressibility, assessment of phasic flow and augmentation response. Report prepared by ANDREWS Ruiz FINDINGS: RIGHT: 1. Common Femoral Vein: 1.1. Compressibility - Fully compressible: Thrombus - None : Flow - Phasic: Augmentation -Normal: Reflux - None. 2. Femoral (proximal to mid views only) 2.1. Compressibility - Fully compressible: Thrombus - None : Flow - Phasic: Augmentation -Normal: Reflux - None. 3. Popliteal Vein: 3.1. Compressibility - Fully compressible: Thrombus - None : Flow - Phasic: Augmentation -Normal: Reflux - None. 4. Posterior Tibial Vein: 4.1. Not visualized due to swelling 5. Peroneal Vein: 5.1. Not visualized due to swelling 6. Great Saphenous Vein: 6.1. Compressibility - Fully compressible: Thrombus - None: Flow - Phasic: Augmentation - Normal: Reflux - None. LEFT: 1. Common Femoral Vein: 1.1. Compressibility - Fully compressible: Thrombus - None: Flow - Phasic: Augmentation -Normal: Reflux - None. 2. Femoral Vein: (Proximal only) 2.1. Compressibility - Fully compressible: Thrombus - None: Flow - Phasic: Augmentation -Normal: Reflux - None. 3. Popliteal Vein: 3.1. Compressibility - Fully compressible: Thrombus - None : Flow - Phasic: Augmentation -Normal: Reflux - None. 4. Posterior Tibial Vein: 4.1. Not visualized due to swelling 5. Peroneal Vein: 5.1. Not visualized due to swelling 6. Great Saphenous Vein: 6.1. Compressibility - Fully compressible: Thrombus - None: Flow - Phasic: Augmentation - Normal: Reflux - None. OTHER FINDINGS: Right: None significant. Left: Unable to assess compressibility at the mid thigh level, due to patient intolerance to compression. The mid femoral vein appeared patent by color fill analysis. IMPRESSION: No evidence of deep or superficial vein thrombosis in bilateral lower extremities, for the examined veins. Technically difficult exam due to swelling and patient large body habitus.
--- NOTE | 2018-10-19 13:25 | VASCLAB ---
Date of service: 10/19/2018 STUDY DESCRIPTION: Lower Extremity PVR/ REGULO Single Level HISTORY: Pain in limb. PRIORS: None. TECHNIQUE: Pulse volume recording waveforms and segmental pressures of bilateral lower extremities at multiple levels were obtained. Ankle Brachial Indices (ABIs) were calculated. Report prepared by ANDREWS Ruiz RIGHT LOWER EXTREMITY: * Brachial artery: Pressure - 174 mmHg. * High thigh: * Low thigh: * Calf: Pressure - >220 mmHg: Ratio - N/C PVR waveform: Pulsatile * Posterior tibial Artery: Pressure - 219 mmHg: Ratio - 1.26 PVR waveform: Pulsatile * Dorsalis pedis Artery: Pressure - 192 mmHg: Ratio - 1.26 PVR waveform: Pulsatile Ankle brachial index (REGULO): 1.26 LEFT LOWER EXTREMITY: * Brachial artery: Pressure - 167 mmHg. * High thigh: * Low thigh: * Calf: Pressure - >220 mmHg: Ratio - N/C PVR waveform: Pulsatile * Posterior tibial Artery: Pressure - >220 mmHg: Ratio - N/C PVR waveform: Pulsatile * Dorsalis pedis Artery: Pressure - 186 mmHg: Ratio - 1.07 PVR waveform: Pulsatile Ankle brachial index (REGULO): 1.07 OTHER FINDINGS: Normal ankle brachial indices and distal arterial PVR waveforms. IMPRESSION: There was no evidence of hemodynamically significant arterial insufficiency in bilateral lower extremities, at rest.
--- NOTE | 2018-10-19 22:13 | CP.PCM.PN ---
Subjective - Date & Time of Evaluation Date of Evaluation: 10/19/18 Time of Evaluation: 09:20 - Subjective Subjective: Patient seen and evaluated Denies chest pain and dyspnea Pedal edema improving Leg doppler study pending Objective - Vital Signs/Intake and Output Vital Signs (last 24 hours): Temp Pulse Resp BP Pulse Ox 97.8 F 63 20 153/86 H 96 10/19/18 15:00 10/19/18 21:26 10/19/18 15:00 10/19/18 21:26 10/19/18 15:00 Intake and Output: 10/19/18 10/20/18 18:59 06:59 Intake Total 550 Output Total 800 Balance -250 - Medications Medications: Current Medications Betamethasone/Clotrimazole (Lotrisone) 0 gm TOP BID [facility] Last Admin: 10/19/18 18:28 Dose: 1 applic Clopidogrel Bisulfate (Plavix) 75 mg PO DAILY [facility] Last Admin: 10/19/18 11:38 Dose: 75 mg Diltiazem HCl (Cardizem) 30 mg PO Q8 [facility] Last Admin: 10/19/18 21:26 Dose: 30 mg Furosemide (Lasix) 40 mg IVP BID [facility] Last Admin: 10/19/18 18:27 Dose: 40 mg Gabapentin (Neurontin) 300 mg PO TID [facility] Last Admin: 10/19/18 18:27 Dose: 300 mg Hydralazine HCl (Apresoline) 25 mg PO Q8 [facility] Last Admin: 10/19/18 21:27 Dose: 25 mg Ceftriaxone Sodium 2 gm/ (Sodium Chloride) 100 mls @ 100 mls/hr IVPB Q24H [facility]; Protocol Last Admin: 10/19/18 11:41 Dose: 100 mls/hr Levothyroxine Sodium (Synthroid) 100 mcg PO DAILY@0630 [facility] Last Admin: 10/19/18 06:55 Dose: 100 mcg Losartan Potassium (Cozaar) 50 mg PO DAILY [facility] Last Admin: 10/19/18 11:37 Dose: 50 mg Nystatin (Mycostatin Cream) 1 ea TOP TID [facility] Last Admin: 10/19/18 18:28 Dose: 1 applic Potassium Chloride (K-Dur 20 Meq Er Tab) 20 meq PO BRK [facility] Last Admin: 10/19/18 08:44 Dose: 20 meq Rivaroxaban (Xarelto) 15 mg PO DAILY [facility] Last Admin: 12/19/18 11:38 Dose: 15 mg Rosuvastatin Calcium (Crestor) 40 mg PO HS [facility] Last Admin: 10/19/18 21:26 Dose: 40 mg Silver Sulfadiazine (Silvadene 1% 20 Gm) 0 ea TOP BID [facility] Last Admin: 10/19/18 18:28 Dose: 1 applic Tramadol HCl (Ultram) 25 mg PO TID PRN PRN Reason: Pain, moderate (4-7) Last Admin: 10/19/18 08:43 Dose: 25 mg - Labs Labs: 10/19/18 08:33 10/19/18 08:33 PT 14.4 SECONDS (9.7-12.2) H 10/13/18 18:21 INR 1.3 10/13/18 18:21 APTT 35 SECONDS (21-34) H 10/13/18 18:21
--- NOTE | 2018-10-19 22:21 | CP.PCM.PN ---
Subjective - Date & Time of Evaluation Date of Evaluation: 10/19/18 Time of Evaluation: 22:21 - Subjective Subjective: Patient is currently sitting up comfortably. Less leg swelling noted. He is more comfortable otherwise. Blood pressure still slightly on the high side. On examination: Vital signs stable. Chest good air entry regular [place] nontender abdomen edema bilaterally in the legs noted Labs reviewed Nonspecific. Renal functions is normal. Current medications reviewed Assessment: 68-year-old male admitted to the hospital with a fluid overload, diastolic heart failure. Also cellulitis in the legs. Will reduce the Lasix. Increase losartan 100 mg daily. Monitor the blood pressure. Will also monitor the heart rate tonight to evaluate any evidence of bradycardia. We will adjust the Cardizem dose according to that and will follow the patient Physical therapy out of bed to chair Objective - Vital Signs/Intake and Output Vital Signs (last 24 hours): Temp Pulse Resp BP Pulse Ox 97.8 F 63 20 153/86 H 96 10/19/18 15:00 10/19/18 21:26 10/19/18 15:00 10/19/18 21:26 10/19/18 15:00 Intake and Output: 10/19/18 10/20/18 18:59 06:59 Intake Total 550 Output Total 800 Balance -250 - Medications Medications: Current Medications Betamethasone/Clotrimazole (Lotrisone) 0 gm TOP BID [facility] Last Admin: 10/19/18 18:28 Dose: 1 applic Clopidogrel Bisulfate (Plavix) 75 mg PO DAILY [facility] Last Admin: 10/19/18 11:38 Dose: 75 mg Diltiazem HCl (Cardizem) 30 mg PO Q8 [facility] Last Admin: 10/19/18 21:26 Dose: 30 mg Furosemide (Lasix) 40 mg IVP BID [facility] Last Admin: 10/19/18 18:27 Dose: 40 mg Gabapentin (Neurontin) 300 mg PO TID [facility] Last Admin: 10/19/18 18:27 Dose: 300 mg Hydralazine HCl (Apresoline) 25 mg PO Q8 [facility] Last Admin: 10/19/18 21:27 Dose: 25 mg Ceftriaxone Sodium 2 gm/ (Sodium Chloride) 100 mls @ 100 mls/hr IVPB Q24H [facility]; Protocol Last Admin: 10/19/18 11:41 Dose: 100 mls/hr Levothyroxine Sodium (Synthroid) 100 mcg PO DAILY@0630 [facility] Last Admin: 10/19/18 06:55 Dose: 100 mcg Losartan Potassium (Cozaar) 50 mg PO DAILY [facility] Last Admin: 10/19/18 11:37 Dose: 50 mg Nystatin (Mycostatin Cream) 1 ea TOP TID [facility] Last Admin: 10/19/18 18:28 Dose: 1 applic Potassium Chloride (K-Dur 20 Meq Er Tab) 20 meq PO BRK [facility] Last Admin: 10/19/18 08:44 Dose: 20 meq Rivaroxaban (Xarelto) 15 mg PO DAILY [facility] Last Admin: 10/19/18 11:38 Dose: 15 mg Rosuvastatin Calcium (Crestor) 40 mg PO HS [facility] Last Admin: 10/19/18 21:26 Dose: 40 mg Silver Sulfadiazine (Silvadene 1% 20 Gm) 0 ea TOP BID [facility] Last Admin: 10/19/18 18:28 Dose: 1 applic Tramadol HCl (Ultram) 25 mg PO TID PRN PRN Reason: Pain, moderate (4-7) Last Admin: 10/19/18 08:43 Dose: 25 mg - Labs Labs: 10/19/18 08:33 10/19/18 08:33 PT 14.4 SECONDS (9.7-12.2) H 10/13/18 18:21 INR 1.3 10/13/18 18:21 APTT 35 SECONDS (21-34) H 10/13/18 18:21
[2018-10-20] MEDS: Levothyroxine 100 MCG TAB PO SCH (05:41)
[2018-10-20] MEDS: Potassium Chloride 20 mEq ER Tab PO SCH (09:00)
--- NOTE | 2018-10-20 09:30 | CP.PCM.PN ---
Subjective - Date & Time of Evaluation Date of Evaluation: 10/20/18 Time of Evaluation: 09:30 - Subjective Subjective: Podiatry Progress Note - Dr. Chairez 68M seen and evaluated at bedside for b/l lower extremity edema. Patient OOB, NAD. No acute events overnight. No new lower extremity complaints per patient. Denies n/v/f/d/c/sob. Objective - Vital Signs/Intake and Output Vital Signs (last 24 hours): Temp Pulse Resp BP Pulse Ox 97.8 F 57 L 20 151/81 H 98 10/20/18 07:00 10/20/18 07:27 10/20/18 07:00 10/20/18 07:00 10/20/18 07:00 Intake and Output: 10/20/18 10/20/18 06:59 18:59 Intake Total 250 Output Total 500 Balance -250 - Medications Medications: Current Medications Betamethasone/Clotrimazole (Lotrisone) 0 gm TOP BID [facility] Last Admin: 10/19/18 18:28 Dose: 1 applic Clopidogrel Bisulfate (Plavix) 75 mg PO DAILY [facility] Last Admin: 10/19/18 11:38 Dose: 75 mg Diltiazem HCl (Cardizem) 30 mg PO Q8 [facility] Last Admin: 10/20/18 05:41 Dose: 30 mg Furosemide (Lasix) 40 mg IVP DAILY [facility] Gabapentin (Neurontin) 300 mg PO TID [facility] Last Admin: 10/19/18 18:27 Dose: 300 mg Hydralazine HCl (Apresoline) 25 mg PO Q8 [facility] Last Admin: 10/20/18 05:41 Dose: 25 mg Ceftriaxone Sodium 2 gm/ (Sodium Chloride) 100 mls @ 100 mls/hr IVPB Q24H [facility]; Protocol Last Admin: 10/19/18 11:41 Dose: 100 mls/hr Levothyroxine Sodium (Synthroid) 100 mcg PO DAILY@0630 [facility] Last Admin: 10/20/18 05:41 Dose: 100 mcg Losartan Potassium (Cozaar) 100 mg PO DAILY [facility] Nystatin (Mycostatin Cream) 1 ea TOP TID [facility] Last Admin: 10/19/18 18:28 Dose: 1 applic Potassium Chloride (K-Dur 20 Meq Er Tab) 20 meq PO BRK [facility] Last Admin: 10/19/18 08:44 Dose: 20 meq Rivaroxaban (Xarelto) 15 mg PO DAILY [facility] Last Admin: 10/19/18 11:38 Dose: 15 mg Rosuvastatin Calcium (Crestor) 40 mg PO HS [facility] Last Admin: 10/19/18 21:26 Dose: 40 mg Silver Sulfadiazine (Silvadene 1% 20 Gm) 0 ea TOP BID [facility] Last Admin: 10/19/18 18:28 Dose: 1 applic Tramadol HCl (Ultram) 25 mg PO TID PRN PRN Reason: Pain, moderate (4-7) Last Admin: 10/19/18 08:43 Dose: 25 mg - Labs Labs: 10/19/18 08:33 10/19/18 08:33 PT 14.4 SECONDS (9.7-12.2) H 10/13/18 18:21 INR 1.3 10/13/18 18:21 APTT 35 SECONDS (21-34) H 10/13/18 18:21 - Constitutional Appears: Non-toxic, No Acute Distress - Extremities Exam Additional comments: B/L LE focused exam: VASC: DP/PT pulses nonpalpable 2/2 edema. Temperature gradient warm to warm. +3 pitting edema present bilaterally. No hair growth appreciated. Erythema/rubor from digits extending proximally up lower extremities b/l resolving. NEURO: Gross sensation diminished bilaterally. DERM: Ulcerations noted circumfirentially to legs b/l with eschar cap - no drainage, no purulence, no flucutance, no undermining. Venous stasis dermatitis present bilaterally. Erythema/rubor from digits extending proximally up lower extremities b/l resolving. MSK: ROM limited secondary to edema. No pain on palpation noted to ulcerations. - Neurological Exam Neurological Exam: Alert, Awake, Oriented x3 - Psychiatric Exam Psychiatric exam: Normal Affect, Normal Mood Assessment and Plan - Assessment and Plan (Free Text) Assessment: 68M with bilateral lower extremity edema and underlying cellulitis Plan: Patient seen and evaluated Discussed with attending, Dr. Mihaela June Continue abx - Ceftriaxone IV Continue lower extremity wound care: Silvadene + Lotrisone, DANIEL wraps b/l Activity: FWB b/l LE Podiatry will continue to follow
[2018-10-20] MEDS: Nystatin 100,000 Units/gm Cream(15 gm) TOP SCH ×3 (10:34→17:24)
[2018-10-20] MEDS: Silver Sulfadiazine 1% Cream (20 gm) TOP SCH ×2 (10:35→17:24)
[2018-10-20] MEDS: Clotrimazole/Betamethasone Cream(15 gm) TOP SCH ×2 (10:35→17:24)
[2018-10-20] MEDS: cefTRIAXone 2 GM in Sodium Chloride 0.9% 100 ML IVPB SCH (11:24)
--- NOTE | 2018-10-20 19:06 | CP.PCM.PN ---
Subjective - Date & Time of Evaluation Date of Evaluation: 10/20/18 Time of Evaluation: 19:04 - Subjective Subjective: Patient is currently feeling well. Patient has no chest pain. No nausea no vomiting. The leg swelling is also feeling much better. The wound is improving. On examination: Vital signs stable. Blood pressure is much controlled. chest good air entry regular heart sounds abdomen soft nontender bilateral pedal edema noted Labs nothing done today Assessment and recommendation: 68-year-old male with history of coronary artery disease, CABG, pulmonary hypertension, sleep apnea on CPAP. Admitted to the hospital with worsening bilateral leg edema decompensated systolic heart failure. Currently receiving Lasix doing well. On anticoagulation for atrial fibrillation. We will continue the current treatment. I discussed with the patient regarding the discharge plan. I recommended subacute rehab evaluation, patient is currently reluctantly agreeing, if he agrees a possible discharge on Wednesday to the rehab center and will follow the patient Objective - Vital Signs/Intake and Output Vital Signs (last 24 hours): Temp Pulse Resp BP Pulse Ox 97.9 F 78 20 136/76 96 10/20/18 15:00 10/20/18 16:44 10/20/18 15:00 10/20/18 15:00 10/20/18 15:00 Intake and Output: 10/20/18 10/21/18 18:59 06:59 Intake Total 550 Output Total 800 Balance -250 - Medications Medications: Current Medications Betamethasone/Clotrimazole (Lotrisone) 0 gm TOP BID [facility] Last Admin: 10/20/18 17:24 Dose: 1 applic Clopidogrel Bisulfate (Plavix) 75 mg PO DAILY [facility] Last Admin: 10/20/18 10:34 Dose: 75 mg Diltiazem HCl (Cardizem) 30 mg PO Q8 [facility] Last Admin: 10/20/18 13:13 Dose: 30 mg Furosemide (Lasix) 40 mg IVP DAILY [facility] Last Admin: 10/20/18 10:32 Dose: 40 mg Gabapentin (Neurontin) 300 mg PO TID [facility] Last Admin: 10/20/18 17:24 Dose: 300 mg Hydralazine HCl (Apresoline) 25 mg PO Q8 [facility] Last Admin: 10/20/18 13:13 Dose: 25 mg Ceftriaxone Sodium 2 gm/ (Sodium Chloride) 100 mls @ 100 mls/hr IVPB Q24H [facility]; Protocol Last Admin: 10/20/18 11:24 Dose: 100 mls/hr Levothyroxine Sodium (Synthroid) 100 mcg PO DAILY@0630 [facility] Last Admin: 10/20/18 05:41 Dose: 100 mcg Losartan Potassium (Cozaar) 100 mg PO DAILY [facility] Last Admin: 10/20/18 10:34 Dose: 100 mg Nystatin (Mycostatin Cream) 1 ea TOP TID [facility] Last Admin: 10/20/18 17:24 Dose: 1 applic Potassium Chloride (K-Dur 20 Meq Er Tab) 20 meq PO BRK [facility] Last Admin: 10/20/18 09:00 Dose: 20 meq Rivaroxaban (Xarelto) 15 mg PO DAILY [facility] Last Admin: 10/20/18 10:34 Dose: 15 mg Rosuvastatin Calcium (Crestor) 40 mg PO HS [facility] Last Admin: 10/19/18 21:26 Dose: 40 mg Silver Sulfadiazine (Silvadene 1% 20 Gm) 0 ea TOP BID [facility] Last Admin: 10/20/18 17:24 Dose: 1 applic - Labs Labs: 10/19/18 08:33 10/19/18 08:33 PT 14.4 SECONDS (9.7-12.2) H 10/13/18 18:21 INR 1.3 10/13/18 18:21 APTT 35 SECONDS (21-34) H 10/13/18 18:21
--- NOTE | 2018-10-20 20:17 | CP.PCM.PN ---
Subjective - Date & Time of Evaluation Date of Evaluation: 10/19/18 Time of Evaluation: 20:15 - Subjective Subjective: INFECTIOUS DISEASE PROGRESS NOTES REANNA MOREL MD, FACP 10/19/2018 CHART REVIEWED PT EXAMINED CASE DISCUSSED PATIENT currently sitting up comfortably. Less leg swelling noted, AND DIFFICULT TO UNIFIED COMMUNICATIONS ARCHITECT - CONSIDER VASCULAR SURGERY He is more comfortable otherwise. Blood pressure still slightly on the high side. On examination: Vital signs stable. Chest good air entry regular [place] nontender abdomen edema bilaterally in the legs noted Labs reviewed Nonspecific. Renal functions is normal. Current medications reviewed Assessment: 68-year-old male admitted to the hospital with a fluid overload, diastolic heart failure. Also cellulitis in the legs. ORDERS TO reduce the Lasix. Increase losartan 100 mg daily. Monitor the blood pressure. Will also monitor the heart rate tonight to evaluate any evidence of bradyca rdia. We will adjust the Cardizem dose according to that and will follow the patient Physical therapy out of bed to chair Objective - Vital Signs/Intake and Output Vital Signs (last 24 hours): Temp Pulse Resp BP Pulse Ox 97.9 F 74 20 136/76 96 10/20/18 15:00 10/20/18 20:10 10/20/18 15:00 10/20/18 15:00 10/20/18 15:00 Intake and Output: 10/20/18 10/21/18 18:59 06:59 Intake Total 550 Output Total 800 Balance -250 - Medications Medications: Current Medications Betamethasone/Clotrimazole (Lotrisone) 0 gm TOP BID [facility] Last Admin: 10/20/18 17:24 Dose: 1 applic Clopidogrel Bisulfate (Plavix) 75 mg PO DAILY [facility] Last Admin: 10/20/18 10:34 Dose: 75 mg Diltiazem HCl (Cardizem) 30 mg PO Q8 [facility] Last Admin: 10/20/18 13:13 Dose: 30 mg Furosemide (Lasix) 40 mg IVP DAILY [facility] Last Admin: 10/20/18 10:32 Dose: 40 mg Gabapentin (Neurontin) 300 mg PO TID [facility] Last Admin: 10/20/18 17:24 Dose: 300 mg Hydralazine HCl (Apresoline) 25 mg PO Q8 [facility] Last Admin: 10/20/18 13:13 Dose: 25 mg Ceftriaxone Sodium 2 gm/ (Sodium Chloride) 100 mls @ 100 mls/hr IVPB Q24H [facility]; Protocol Last Admin: 10/20/18 11:24 Dose: 100 mls/hr Levothyroxine Sodium (Synthroid) 100 mcg PO DAILY@0630 [facility] Last Admin: 10/20/18 05:41 Dose: 100 mcg Losartan Potassium (Cozaar) 100 mg PO DAILY [facility] Last Admin: 10/20/18 10:34 Dose: 100 mg Nystatin (Mycostatin Cream) 1 ea TOP TID [facility] Last Admin: 10/20/18 17:24 Dose: 1 applic Potassium Chloride (K-Dur 20 Meq Er Tab) 20 meq PO BRK [facility] Last Admin: 10/20/18 09:00 Dose: 20 meq Rivaroxaban (Xarelto) 15 mg PO DAILY [facility] Last Admin: 10/20/18 10:34 Dose: 15 mg Rosuvastatin Calcium (Crestor) 40 mg PO HS [facility] Last Admin: 10/19/18 21:26 Dose: 40 mg Silver Sulfadiazine (Silvadene 1% 20 Gm) 0 ea TOP BID [facility] Last Admin: 10/20/18 17:24 Dose: 1 applic - Labs Labs: 10/19/18 08:33 10/19/18 08:33 PT 14.4 SECONDS (9.7-12.2) H 10/13/18 18:21 INR 1.3 10/13/18 18:21 APTT 35 SECONDS (21-34) H 10/13/18 18:21
--- NOTE | 2018-10-20 20:30 | CP.PCM.PN ---
Subjective - Date & Time of Evaluation Date of Evaluation: 10/20/18 Time of Evaluation: 20:27 - Subjective Subjective: INFECTIOUS DISEASE PROGRESS NOTES REANNA MOREL MD, FACP 10/20/2018 CHART REVIEWED PT EXAMINED DISCUSSION NOTED CLINICALLY feeling well, BUT DIFFICULT TIME TAKING CARE OF HIMSELF. Patient has no chest pain. No nausea no vomiting. The leg swelling is also feeling much better. The wound is improving. On examination: Vital signs stable. Blood pressure is much controlled. chest good air entry regular heart sounds abdomen soft non tender bilateral pedal edema noted Assessment and recommendation: 68-year-old male with history of coronary artery disease, CABG, pulmonary hypertension, sleep apnea on CPAP. Admitted to the hospital with worsening bilateral leg edema decompensated systolic heart failure. Currently receiving Lasix doing well. On anticoagulation for atrial fibrillation. We will continue the current treatment. OBSERVE MEDICALLY Objective - Vital Signs/Intake and Output Vital Signs (last 24 hours): Temp Pulse Resp BP Pulse Ox 97.9 F 74 20 136/76 96 10/20/18 15:00 10/20/18 20:10 10/20/18 15:00 10/20/18 15:00 10/20/18 15:00 Intake and Output: 10/20/18 10/21/18 18:59 06:59 Intake Total 550 Output Total 800 Balance -250 - Medications Medications: Current Medications Betamethasone/Clotrimazole (Lotrisone) 0 gm TOP BID [facility] Last Admin: 10/20/18 17:24 Dose: 1 applic Clopidogrel Bisulfate (Plavix) 75 mg PO DAILY [facility] Last Admin: 10/20/18 10:34 Dose: 75 mg Diltiazem HCl (Cardizem) 30 mg PO Q8 [facility] Last Admin: 10/20/18 13:13 Dose: 30 mg Furosemide (Lasix) 40 mg IVP DAILY [facility] Last Admin: 10/20/18 10:32 Dose: 40 mg Gabapentin (Neurontin) 300 mg PO TID [facility] Last Admin: 10/20/18 17:24 Dose: 300 mg Hydralazine HCl (Apresoline) 25 mg PO Q8 [facility] Last Admin: 10/20/18 13:13 Dose: 25 mg Ceftriaxone Sodium 2 gm/ (Sodium Chloride) 100 mls @ 100 mls/hr IVPB Q24H [facility]; Protocol Last Admin: 10/20/18 11:24 Dose: 100 mls/hr Levothyroxine Sodium (Synthroid) 100 mcg PO DAILY@0630 [facility] Last Admin: 10/20/18 05:41 Dose: 100 mcg Losartan Potassium (Cozaar) 100 mg PO DAILY [facility] Last Admin: 10/20/18 10:34 Dose: 100 mg Nystatin (Mycostatin Cream) 1 ea TOP TID [facility] Last Admin: 10/20/18 17:24 Dose: 1 applic Potassium Chloride (K-Dur 20 Meq Er Tab) 20 meq PO BRK [facility] Last Admin: 10/20/18 09:00 Dose: 20 meq Rivaroxaban (Xarelto) 15 mg PO DAILY [facility] Last Admin: 10/20/18 10:34 Dose: 15 mg Rosuvastatin Calcium (Crestor) 40 mg PO HS [facility] Last Admin: 10/19/18 21:26 Dose: 40 mg Silver Sulfadiazine (Silvadene 1% 20 Gm) 0 ea TOP BID [facility] Last Admin: 10/20/18 17:24 Dose: 1 applic - Labs Labs: 10/19/18 08:33 10/19/18 08:33 PT 14.4 SECONDS (9.7-12.2) H 10/13/18 18:21 INR 1.3 10/13/18 18:21 APTT 35 SECONDS (21-34) H 10/13/18 18:21
[2018-10-21] MEDS: Levothyroxine 100 MCG TAB PO SCH (05:30)
[2018-10-21 08:34] LABS: BASO # 0.1 K/uL (0.0-0.2); EOS # 0.3 K/uL (0.0-0.7); EOS % 3.3 % (0.0-4.0); HEMOGLOBIN 13.8 g/dL (12.0-18.0); LYMPH # 2.1 K/uL (1.0-4.3); LYMPH % 22.4 % (20.0-40.0); MEAN CELL VOLUME 83.2 fL (80.0-94.0); MEAN CORPUSCULAR HEMOGLOBIN 28.4 pg (27.0-31.0); MEAN CORPUSCULAR HGB CONC 34.1 g/dL (33.0-37.0); MONO # 1.1 K/uL (0.0-0.8); MONO % 12.4 % (0.0-10.0); NEUT # 5.6 K/uL (1.8-7.0); NEUT % 60.9 % (50.0-75.0); NRBC % 0.1 % (0.0-2.0); RBC 4.86 Mil/uL (4.40-5.90); RED CELL DISTRIBUTION WIDTH 15.7 % (11.5-14.5); WHITE BLOOD COUNT 9.3 K/uL (4.8-10.8)
[2018-10-21 09:38] LABS: ALB/GLOB RATIO 1.7 (1.0-2.1); ALBUMIN 4.5 g/dL (3.5-5.0); ALT/SGPT 14 U/L (21-72); AST/SGOT 37 U/L (17-59); BLOOD UREA NITROGEN 20 mg/dL (9-20); CALCIUM 9.5 mg/dl (8.6-10.4); GFR NON-AFRICAN AMERICAN > 60
[2018-10-21] MEDS: Potassium Chloride 20 mEq ER Tab PO SCH (09:59)
[2018-10-21] MEDS: Silver Sulfadiazine 1% Cream (20 gm) TOP SCH ×2 (09:59→18:59)
[2018-10-21] MEDS: Nystatin 100,000 Units/gm Cream(15 gm) TOP SCH ×3 (10:00→18:58)
[2018-10-21] MEDS: Clotrimazole/Betamethasone Cream(15 gm) TOP SCH ×2 (10:00→18:58)
--- NOTE | 2018-10-21 12:20 | CP.PCM.PN ---
Subjective - Date & Time of Evaluation Date of Evaluation: 10/21/18 Time of Evaluation: 12:19 - Subjective Subjective: Podiatry Progress Note - Dr. Chairez 68M seen and evaluated at bedside for b/l lower extremity edema. Family present at bedside. Patient OOB legs in dependent position, NAD. No acute events overnight. No new lower extremity complaints. Objective - Vital Signs/Intake and Output Vital Signs (last 24 hours): Temp Pulse Resp BP Pulse Ox 98.7 F 61 20 133/61 95 10/21/18 07:34 10/21/18 07:34 10/21/18 07:34 10/21/18 10:00 10/21/18 07:34 Intake and Output: 10/21/18 10/21/18 06:59 18:59 Intake Total 500 Balance 500 - Medications Medications: Current Medications Betamethasone/Clotrimazole (Lotrisone) 0 gm TOP BID [facility] Last Admin: 10/21/18 10:00 Dose: 1 applic Clopidogrel Bisulfate (Plavix) 75 mg PO DAILY [facility] Last Admin: 10/21/18 09:59 Dose: 75 mg Diltiazem HCl (Cardizem) 30 mg PO Q8 [facility] Last Admin: 10/21/18 05:21 Dose: 30 mg Furosemide (Lasix) 40 mg IVP DAILY [facility] Last Admin: 10/21/18 10:00 Dose: 40 mg Gabapentin (Neurontin) 300 mg PO TID [facility] Last Admin: 10/21/18 09:59 Dose: 300 mg Hydralazine HCl (Apresoline) 25 mg PO Q8 [facility] Last Admin: 10/21/18 05:21 Dose: 25 mg Ceftriaxone Sodium 2 gm/ (Sodium Chloride) 100 mls @ 100 mls/hr IVPB Q24H [facility]; Protocol Last Admin: 10/20/18 11:24 Dose: 100 mls/hr Levothyroxine Sodium (Synthroid) 100 mcg PO DAILY@0630 [facility] Last Admin: 10/21/18 05:30 Dose: 100 mcg Losartan Potassium (Cozaar) 100 mg PO DAILY [facility] Last Admin: 10/21/18 09:59 Dose: 100 mg Nystatin (Mycostatin Cream) 1 ea TOP TID [facility] Last Admin: 10/21/18 10:00 Dose: 1 applic Potassium Chloride (K-Dur 20 Meq Er Tab) 20 meq PO BRK [facility] Last Admin: 10/21/18 09:59 Dose: 20 meq Rivaroxaban (Xarelto) 15 mg PO DAILY [facility] Last Admin: 10/21/18 09:59 Dose: 15 mg Rosuvastatin Calcium (Crestor) 40 mg PO HS [facility] Last Admin: 10/20/18 21:32 Dose: 40 mg Silver Sulfadiazine (Silvadene 1% 20 Gm) 0 ea TOP BID [facility] Last Admin: 10/21/18 09:59 Dose: 1 applic - Labs Labs: 10/21/18 08:00 10/21/18 08:00 PT 14.4 SECONDS (9.7-12.2) H 10/13/18 18:21 INR 1.3 10/13/18 18:21 APTT 35 SECONDS (21-34) H 10/13/18 18:21 - Constitutional Appears: Non-toxic, No Acute Distress - Extremities Exam Additional comments: Dressings to bilateral LE clean/dry/intact with no strikethrough present Neurovascular status intat to digits ROM limited 2/2 edema with no pain present. - Neurological Exam Neurological Exam: Alert, Awake, Oriented x3 - Psychiatric Exam Psychiatric exam: Normal Affect, Normal Mood Assessment and Plan - Assessment and Plan (Free Text) Assessment: 68M with bilateral lower extremity edema and underlying cellulitis, resolving Plan: Patient seen and evaluated with attending, Dr. Mihaela June, WBC WNL 9.3 Continue abx - Ceftriaxone IV Continue lower extremity wound care: Silvadene + Lotrisone, DANIEL wraps b/l Activity: FWB b/l LE Podiatry will continue to follow
[2018-10-21] MEDS: cefTRIAXone 2 GM in Sodium Chloride 0.9% 100 ML IVPB SCH (12:48)
[2018-10-21 16:00] VITALS: PULSE 65
[2018-10-21 16:11] VITALS: BP 113/66; TEMP 97.7; O2SAT 95
--- NOTE | 2018-10-21 17:32 | PCM.HF ---
Heart Failure Core Measure - Heart Failure Ejection Fraction: 40 % or Greater (EF 65%) DANIEL Inhibitor Prescribed: No Contraindication/Reason for not providing: on arb Beta-Bob Prescribed: None Contraindication/Reason for not providing: ef >40% Angiotensin II Receptor Bob Prescribed: Yes AnticoagulationTherapy for Atrial Fibrillation/Atrialflutter: Yes Aldosterone Antagonist Prescribed: No Contraindication/Reason for not providing: EF >40% Hydralazine Nitrate Prescribed: Yes Implantable Cardioverter Defibrillator Therapy: No Contraindication/Reason for not providing: EF >40% Cardiac Resynchronization Therapy Prescribed: No Contraindication/Reason for not providing: Not indicated - Follow up Will be discharged to: [facility] ([facility])
--- NOTE | 2018-10-21 17:43 | CP.PCM.PN ---
Subjective - Date & Time of Evaluation Date of Evaluation: 10/21/18 Time of Evaluation: 17:43 - Subjective Subjective: Alert, oriented, ambulatory with walker, denies acute pain or distress. Objective - Vital Signs/Intake and Output Vital Signs (last 24 hours): Temp Pulse Resp BP Pulse Ox 97.7 F 65 20 113/66 95 10/21/18 15:00 10/21/18 16:09 10/21/18 15:00 10/21/18 15:00 10/21/18 15:00 Intake and Output: 10/21/18 10/21/18 06:59 18:59 Intake Total 500 580 Output Total 700 Balance 500 -120 - Medications Medications: Current Medications Betamethasone/Clotrimazole (Lotrisone) 0 gm TOP BID [facility] Last Admin: 10/21/18 10:00 Dose: 1 applic Clopidogrel Bisulfate (Plavix) 75 mg PO DAILY [facility] Last Admin: 10/21/18 09:59 Dose: 75 mg Diltiazem HCl (Cardizem) 30 mg PO Q8 [facility] Last Admin: 10/21/18 13:12 Dose: 30 mg Furosemide (Lasix) 40 mg IVP DAILY [facility] Last Admin: 10/21/18 10:00 Dose: 40 mg Gabapentin (Neurontin) 300 mg PO TID [facility] Last Admin: 10/21/18 13:13 Dose: 300 mg Hydralazine HCl (Apresoline) 25 mg PO Q8 [facility] Last Admin: 10/21/18 13:12 Dose: 25 mg Ceftriaxone Sodium 2 gm/ (Sodium Chloride) 100 mls @ 100 mls/hr IVPB Q24H [facility]; Protocol Last Admin: 10/21/18 12:48 Dose: 100 mls/hr Levothyroxine Sodium (Synthroid) 100 mcg PO DAILY@0630 [facility] Last Admin: 10/21/18 05:30 Dose: 100 mcg Losartan Potassium (Cozaar) 100 mg PO DAILY [facility] Last Admin: 10/21/18 09:59 Dose: 100 mg Nystatin (Mycostatin Cream) 1 ea TOP TID [facility] Last Admin: 10/21/18 13:13 Dose: 1 applic Potassium Chloride (K-Dur 20 Meq Er Tab) 20 meq PO BRK [facility] Last Admin: 10/21/18 09:59 Dose: 20 meq Rivaroxaban (Xarelto) 15 mg PO DAILY [facility] Last Admin: 10/21/18 09:59 Dose: 15 mg Rosuvastatin Calcium (Crestor) 40 mg PO HS [facility] Last Admin: 10/20/18 21:32 Dose: 40 mg Silver Sulfadiazine (Silvadene 1% 20 Gm) 0 ea TOP BID [facility] Last Admin: 10/21/18 09:59 Dose: 1 applic - Labs Labs: 10/21/18 08:00 10/21/18 08:00 PT 14.4 SECONDS (9.7-12.2) H 10/13/18 18:21 INR 1.3 10/13/18 18:21 APTT 35 SECONDS (21-34) H 10/13/18 18:21 Assessment and Plan - Assessment and Plan (Free Text) Assessment: 68 year old male admitted with CHF, lower extremity edema, difficulty walking, seen and examined. Alert and oriented x3, denies sob or chest pains. Discussed with DR Lozoya, plan to discharge to the rehab on present medications. Patient verbalized understanding.
--- NOTE | 2018-10-21 18:03 | CP.PCM.PN ---
Subjective - Date & Time of Evaluation Date of Evaluation: 10/21/18 Time of Evaluation: 18:00 - Subjective Subjective: INFECTIOUS DISEASE PROGRESS NOTES REANNA MOREL MD, FACP 10/21/2018 CHART REVIEWED PT EXAMINED CASE NOTED 68M seen and evaluated at bedside for b/l lower extremity edema. Patient OOB legs in dependent position, NAD. No acute events overnight. No new lower extremity complaints. MAY USE TOPICAL TREATMENT Objective - Vital Signs/Intake and Output Vital Signs (last 24 hours): Temp Pulse Resp BP Pulse Ox 98.7 F 61 20 133/61 95 10/21/18 07:34 10/21/18 07:34 10/21/18 07:34 10/21/18 10:00 10/21/18 07:34 Intake and Output: 10/21/18 10/21/18 06:59 18:59 Intake Total 500 Balance 500 - Medications Medications: Current Medications Betamethasone/Clotrimazole (Lotrisone) 0 gm TOP BID [facility] Last Admin: 10/21/18 10:00 Dose: 1 applic Clopidogrel Bisulfate (Plavix) 75 mg PO DAILY [facility] Last Admin: 10/21/18 09:59 Dose: 75 mg Diltiazem HCl (Cardizem) 30 mg PO Q8 [facility] Last Admin: 10/21/18 05:21 Dose: 30 mg Furosemide (Lasix) 40 mg IVP DAILY [facility] Last Admin: 10/21/18 10:00 Dose: 40 mg Gabapentin (Neurontin) 300 mg PO TID [facility] Last Admin: 10/21/18 09:59 Dose: 300 mg Hydralazine HCl (Apresoline) 25 mg PO Q8 [facility] Last Admin: 10/21/18 05:21 Dose: 25 mg Ceftriaxone Sodium 2 gm/ (Sodium Chloride) 100 mls @ 100 mls/hr IVPB Q24H [facility]; Protocol Last Admin: 10/20/18 11:24 Dose: 100 mls/hr Levothyroxine Sodium (Synthroid) 100 mcg PO DAILY@0630 [facility] Last Admin: 10/21/18 05:30 Dose: 100 mcg Losartan Potassium (Cozaar) 100 mg PO DAILY [facility] Last Admin: 10/21/18 09:59 Dose: 100 mg Nystatin (Mycostatin Cream) 1 ea TOP TID [facility] Last Admin: 10/21/18 10:00 Dose: 1 applic Potassium Chloride (K-Dur 20 Meq Er Tab) 20 meq PO BRK [facility] Last Admin: 10/21/18 09:59 Dose: 20 meq Rivaroxaban (Xarelto) 15 mg PO DAILY [facility] Last Admin: 10/21/18 09:59 Dose: 15 mg Rosuvastatin Calcium (Crestor) 40 mg PO HS [facility] Last Admin: 10/20/18 21:32 Dose: 40 mg Silver Sulfadiazine (Silvadene 1% 20 Gm) 0 ea TOP BID [facility] Last Admin: 10/21/18 09:59 Dose: 1 applic - Labs Labs: 10/21/18 08:00 10/21/18 08:00 PT 14.4 SECONDS (9.7-12.2) H 10/13/18 18:21 INR 1.3 10/13/18 18:21 APTT 35 SECONDS (21-34) H 10/13/18 18:21 - Constitutional Appears: Non-toxic, No Acute Distress TOPICAL TREATMENT FOR HIS FEET PT HAS LYMPHEDEMA COMPRESSOR AT HOME MAY STOP HIS ROCEPHIN Objective - Vital Signs/Intake and Output Vital Signs (last 24 hours): Temp Pulse Resp BP Pulse Ox 97.7 F 65 20 113/66 95 10/21/18 15:00 10/21/18 16:09 10/21/18 15:00 10/21/18 15:00 10/21/18 15:00 Intake and Output: 10/21/18 10/21/18 06:59 18:59 Intake Total 500 580 Output Total 700 Balance 500 -120 - Medications Medications: Current Medications Betamethasone/Clotrimazole (Lotrisone) 0 gm TOP BID [facility] Last Admin: 10/21/18 10:00 Dose: 1 applic Clopidogrel Bisulfate (Plavix) 75 mg PO DAILY [facility] Last Admin: 10/21/18 09:59 Dose: 75 mg Diltiazem HCl (Cardizem) 30 mg PO Q8 [facility] Last Admin: 10/21/18 13:12 Dose: 30 mg Furosemide (Lasix) 40 mg IVP DAILY [facility] Last Admin: 10/21/18 10:00 Dose: 40 mg Gabapentin (Neurontin) 300 mg PO TID [facility] Last Admin: 10/21/18 13:13 Dose: 300 mg Hydralazine HCl (Apresoline) 25 mg PO Q8 [facility] Last Admin: 10/21/18 13:12 Dose: 25 mg Ceftriaxone Sodium 2 gm/ (Sodium Chloride) 100 mls @ 100 mls/hr IVPB Q24H [facility]; Protocol Last Admin: 10/21/18 12:48 Dose: 100 mls/hr Levothyroxine Sodium (Synthroid) 100 mcg PO DAILY@0630 [facility] Last Admin: 10/21/18 05:30 Dose: 100 mcg Losartan Potassium (Cozaar) 100 mg PO DAILY [facility]O Last Admin: 10/21/18 09:59 Dose: 100 mg Nystatin (Mycostatin Cream) 1 ea TOP TID ZO Last Admin: 10/21/18 13:13 Dose: 1 applic Potassium Chloride (K-Dur 20 Meq Er Tab) 20 meq PO BRK ZO Last Admin: 10/21/18 09:59 Dose: 20 meq Rivaroxaban (Xarelto) 15 mg PO DAILY [facility] Last Admin: 10/21/18 09:59 Dose: 15 mg Rosuvastatin Calcium (Crestor) 40 mg PO HS [facility] Last Admin: 10/20/18 21:32 Dose: 40 mg Silver Sulfadiazine (Silvadene 1% 20 Gm) 0 ea TOP BID [facility] Last Admin: 10/21/18 09:59 Dose: 1 applic - Labs Labs: 10/21/18 08:00 10/21/18 08:00 PT 14.4 SECONDS (9.7-12.2) H 10/13/18 18:21 INR 1.3 10/13/18 18:21 APTT 35 SECONDS (21-34) H 10/13/18 18:21
--- NOTE | 2018-10-21 18:09 | CP.PCM.DIS ---
Provider - Provider Date of Admission: 10/13/18 19:17 Attending physician: Genoveva Lozoya MD Consults: 10/13/18 20:09 Cardiology Consult Routine Comment: Consulting Provider: Bernardo Hernandez Consulting Physician: Bernardo Hernandez Reason for Consult: chf Infectious Disease Consult Routine Comment: Consulting Provider: Sherine Davies Consulting Physician: Sherine Davies Reason for Consult: cellulitis Podiatry Consult Routine Comment: Consulting Provider: Raji Chairez Consulting Physician: Raji Chairez Reason for Consult: edema 10/16/18 11:13 General Surgery Consult Routine Comment: Please notify attending Consulting Provider: Aakash Beltran Consulting Physician: Aakash Beltran Reason for Consult: PAD Time Spent in preparation of Discharge (in minutes): 45 Hospital Course - Lab Results Lab Results: Micro Results 10/13/18 22:18 Blood-Venous Blood Culture - Final NO GROWTH AFTER 5 DAYS 10/13/18 22:18 Blood-Venous Gram Stain - Final TEST NOT PERFORMED 10/13/18 22:18 Blood-Venous Blood Culture - Final NO GROWTH AFTER 5 DAYS 10/13/18 22:18 Blood-Venous Gram Stain - Final TEST NOT PERFORMED 10/13/18 22:43 Toe Gram Stain - Final 10/13/18 22:43 Toe Wound Culture - Final Enterobacter Gergoviae Kocuria Tomistinae Most Recent Lab Values WBC 9.3 K/uL (4.8-10.8) 10/21/18 08:00 RBC 4.86 Mil/uL (4.40-5.90) 10/21/18 08:00 Hgb 13.8 g/dL (12.0-18.0) 10/21/18 08:00 Hct 40.5 % (35.0-51.0) 10/21/18 08:00 MCV 83.2 fL (80.0-94.0) 10/21/18 08:00 MCH 28.4 pg (27.0-31.0) 10/21/18 08:00 MCHC 34.1 g/dL (33.0-37.0) 10/21/18 08:00 RDW 15.7 % (11.5-14.5) H 10/21/18 08:00 Plt Count 248 K/uL (130-400) 10/21/18 08:00 MPV 9.0 fL (7.2-11.7) 10/21/18 08:00 Neut % (Auto) 60.9 % (50.0-75.0) 10/21/18 08:00 Lymph % (Auto) 22.4 % (20.0-40.0) 10/21/18 08:00 Republic % (Auto) 12.4 % (0.0-10.0) H 10/21/18 08:00 Eos % (Auto) 3.3 % (0.0-4.0) 10/21/18 08:00 Baso % (Auto) 1.0 % (0.0-2.0) 10/21/18 08:00 Neut # (Auto) 5.6 K/uL (1.8-7.0) 10/21/18 08:00 Lymph # (Auto) 2.1 K/uL (1.0-4.3) 10/21/18 08:00 Republic # (Auto) 1.1 K/uL (0.0-0.8) H 10/21/18 08:00 Eos # (Auto) 0.3 K/uL (0.0-0.7) 10/21/18 08:00 Baso # (Auto) 0.1 K/uL (0.0-0.2) 10/21/18 08:00 ESR 6 mm/hr (0-15) 10/14/18 06:28 PT 14.4 SECONDS (9.7-12.2) H 10/13/18 18:21 INR 1.3 10/13/18 18:21 APTT 35 SECONDS (21-34) H 10/13/18 18:21 Sodium 138 mmol/L (132-148) 10/21/18 08:00 Potassium 4.1 mmol/L (3.6-5.2) 10/21/18 08:00 Chloride 101 mmol/L (98-107) 10/21/18 08:00 Carbon Dioxide 26 mmol/L (22-30) 10/21/18 08:00 Anion Gap 16 (10-20) 10/21/18 08:00 BUN 20 mg/dL (9-20) 10/21/18 08:00 Creatinine 0.9 mg/dL (0.8-1.5) 10/21/18 08:00 Est GFR ( Amer) > 60 10/21/18 08:00 Est GFR (Non-Af Amer) > 60 10/21/18 08:00 POC Glucose (mg/dL) 204 mg/dL (65-110) H 10/21/18 16:25 Random Glucose 154 mg/dL (75-110) H 10/21/18 08:00 Calcium 9.5 mg/dl (8.6-10.4) 10/21/18 08:00 Phosphorus 3.6 mg/dL (2.5-4.5) 10/21/18 08:00 Magnesium 1.9 mg/dL (1.6-2.3) 10/21/18 08:00 Total Bilirubin 0.7 mg/dL (0.2-1.3) 10/21/18 08:00 AST 37 U/L (17-59) 10/21/18 08:00 ALT 14 U/L (21-72) L D 10/21/18 08:00 Alkaline Phosphatase 120 U/L (38-126) 10/21/18 08:00 Total Creatine Kinase 99 U/L (55-170) 10/17/18 08:28 Troponin I 0.0400 ng/mL (0.00-0.120) 10/13/18 22:18 C-Reactive Protein 23.20 mg/L (0.0-9.9) H 10/14/18 06:28 NT-Pro-B Natriuret Pep 976 pg/mL (0-900) H 10/15/18 07:58 Total Protein 7.2 g/dL (6.3-8.3) 10/21/18 08:00 Albumin 4.5 g/dL (3.5-5.0) 10/21/18 08:00 Globulin 2.6 gm/dL (2.2-3.9) 10/21/18 08:00 Albumin/Globulin Ratio 1.7 (1.0-2.1) 10/21/18 08:00 TSH 3rd Generation 5.48 mIU/L (0.46-4.68) H 10/14/18 06:28 - Hospital Course Hospital Course: CHIEF COMPLAINT: Leg swelling and shortness of breath. HISTORY OF PRESENT ILLNESS: A 68-year-old male with multiple medical history including heart disease, congestive heart failure, history of stent in the heart, obstructive sleep apnea, history of COPD, hypertension, diabetes, hypercholesterolemia., chronic venous insufficiency, chronic leg ulcers, also being treated in the wound care settings. He came to the emergency room with symptoms of bilateral worsening leg swelling, unable to walk, and also worsening shortness of breath. The patient went to see Dr. Davies's office by the routine visit. In the office, the patient was not able to stand up and walk, he was having severe shortness of breath, was sent to the emergency room. The patient was getting own management at a hospital near [place] for the left leg ulcers. 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 The patient is suffering from the chronic leg swelling for quite some time. He was also using the compression stockings in the house, but no improvement. Recently 10 months ago, the patient had a stenting placement for the heart. At that time, he was having severe weakness in the muscles. He was also diagnosed with rhabdomyolysis along with renal insufficiency, but he never received any dialysis. Now, he is having increasing leg swelling. He was also having shortness of breath. He is not using any oxygen at home. He denies any abdominal pain. He has no sacral sores noted. He has no loss of appetite. He denies any nausea, vomiting, or other systemic symptoms. PAST MEDICAL HISTORY: As noted above, hypertension; diabetes; hypercholesterolemia; CAD, status post stent; history of obstructive sleep apnea, on CPAP. PAST SURGICAL HISTORY: Include coronary artery bypass grafting in 2000, four-vessel bypass. Following that, he had multiple stenting done. Chronic leg ulcer, he had a wound management being done. ALLERGIES: NO KNOWN DRUG ALLERGIES. PERSONAL HISTORY: The patient was a smoker in the past. Also, he denies any alcohol. The patient is currently living by himself. FAMILY HISTORY: Significant for diabetes and hypertension. REVIEW OF SYSTEMS: Noted from the chart. Headache occasionally noted. Denies any cough. Shortness of breath present. Chest pain negative. Abdominal swelling also noted. Bilateral leg swelling and also worsening leg edema noted. PHYSICAL EXAMINATION: VITAL SIGNS: Pulse 70 beats per minute, irregular heart beat noted, blood pressure 180/90. CHEST: Bilateral diffuse minimal expiratory wheezing noted. HEART: Regular heart sounds noted. ABDOMEN: Obesity present. GENITOURINARY: Right groin, there is a rash noted involving the right inguinal crease. EXTREMITIES: Bilateral leg edema noted associated with significant edema up to the thigh region noted. Healed right leg ulcers, but left leg healing ulcers noted. The patient also has dark skin changes in the great toe on the right side, fourth toe on the right side. Also, there is a foul-smelling discharge present in the nail bed. LABORATORY DATA: WBC 8.4, hemoglobin 13.2, hematocrit is 40.2, and platelet is 240. INR is 1.3. Chemistry is nonspecific. Elevated pro-BNP noted. Chest x-ray showing evidence of vascular congestion. EKG, atrial fibrillation. ASSESSMENT AND RECOMMENDATION: This is a 68-year-old male with a history of multiple medical problems including coronary artery disease, hypertension, hypercholesterolemia, diabetes, coronary artery bypass grafting, chronic leg ulcers, and chronic leg edema. Admitted with possible decompensated diastolic heart failure likely associated with the cor pulmonale contributing the venous edema of the legs associated with possible leg ulcers, nonhealing on the right great toe, underlying vascular insufficiency cannot be ruled out. Infectious disease evaluation and cardiology evaluation were called in. Deep venous thrombosis and gastrointestinal prophylaxis. The patient is already on anticoagulation. The patient was on multiple antihypertensive medications. Medications reconciliation was done. Discussed with the patient in detail about the prognosis. Also, I discussed with the Cardiology as well as Infectious Disease and Podiatry consultation. We will follow up the patient. Course in the hospital: Patient hospitalized with acute fluid overload state, bilateral pedal edema with associated cellulitis and diastolic heart failure. Patient started on intravenous Lasix large amount of IV diuretics were given, patient had a significant diuresis and a followed by significant weight loss and he also started having significant improvement in the bilateral leg swelling patient started on intravenous ceftriaxone , And he started having significant improvement in the wound on the right leg as well as in the left calf region. Patient underwent extensive workup including echocardiogram echocardiogram showing evidence of normal ejection fraction mild pulmonary arterial hypertension noted with a pressure of 40mmhg . Electrocardiogram showing evidence of atrial fibrillation with variable ventricular rate. Patient also underwent arterial and venous Doppler of the legs are showing evidence of venous congestion but no clots noted Currently patient is on hydralazine 25 mg 3 times daily Cardizem 30 mg. Cozaar 100 mg daily Crestor 40 mg daily Lasix 40 mg p.o. daily KCl 20 mEq p.o. daily Gabapentin 300 mg 3 times daily Plavix 75 mg daily Levothyroxine 100 mcg daily Xarelto 15 mg daily Diagnosis: Patient is a 68-year-old male with a history of coronary artery bypass grafting CAD stent pulmonary hypertension obstructive sleep apnea obesity hypoventilation admitted to the hospital with Cellulitis of the leg Fluid overload acute Diastolic heart failure associate with the pulmonary hypertension Possible COPD exacerbation also. Patient will be discharged to rehabilitation. He will follow-up as an outpatient after the discharge. He will continue the medications reviewed already I spoke to the patient in detail and will follow the patient. He needs to maintain his weight, fluid management, and diuretics. Discharge Exam - Head Exam Head Exam: ATRAUMATIC, NORMOCEPHALIC Discharge Plan - Discharge Medications Prescriptions: Furosemide [Lasix] 40 mg PO DAILY 30 Days tablet traMADol [Ultram] 25 mg PO Q8H PRN #30 tab PRN Reason: Pain, Severe (8-10) - Follow Up Plan Condition: STABLE Disposition: HOME/ ROUTINE Instructions: Heart Healthy Diet, Heart Failure, Adult (DC) Referrals: Sherine Davies MD [Staff Provider] - Bernardo Hernandez MD [Staff Provider] - Solitario Henning MD [Staff Provider] - Genoveva Lozoya MD [Staff Provider] - Raji Chairez DPM [Staff Provider] -
--- NOTE | 2018-10-21 22:18 | CP.PCM.CON ---
History of Present Illness - History of Present Illness History of Present Illness: Patient was seen and examined. Patient denies chest pain and dyspnea Physical Exaination - Constitutional Appears: No Acute Distress - Head Exam Head Exam: NORMAL INSPECTION, NORMOCEPHALIC - Eye Exam Eye Exam: EOMI, PERRL - ENT Exam ENT Exam: Mucous Membranes Moist - Respiratory Exam Respiratory Exam: Clear to Ausculation Bilateral, NORMAL BREATHING PATTERN. absent: Decreased Breath Sounds - Cardiovascular Exam Cardiovascular Exam: REGULAR RHYTHM - GI/Abdominal Exam GI & Abdominal Exam: Soft, Normal Bowel Sounds. absent: Distended, Tenderness - Extremities Exam Extremities Exam: Pedal Edema, Tenderness Additional comments: bilateral edema from knees down; erythema noted, no open wounds, blisters. - Neurological Exam Neurological Exam: Alert, Awake, Oriented x3 - Psychiatric Exam Psychiatric exam: Normal Affect, Normal Mood - Skin Skin Exam: Dry, Intact, Normal Color, Warm Assessment and Plan - Assessment and Plan (Free Text) Plan: Bilateral Lower Extremity Edema / Underlying Cellulitis Chronic Diastolic Heart Failure Hx Hypertension, T2DM, CAD with CABG (4 vessel, 2000; 1 stent 2015; 11/2017 4 stents), HAZEL, PVD, PAD? Imaging: - Patient reports he had a stress test this year, normal - ECHO: Normal EF Management: - Pedal edema - Continue with Lasix Follow lytes Past Patient History - Past Social History Smoking Status: Former Smoker - CARDIAC Hx Congestive Heart Failure: Yes - NEUROLOGICAL HX Cerebrovascular Accident: Yes - ENDOCRINE/METABOLIC Hx Diabetes Mellitus Type 2: Yes - MUSCULOSKELETAL/RHEUMATOLOGICAL Hx Arthritis: Yes - PSYCHIATRIC Hx Substance Use: No - SURGICAL HISTORY Hx Cardiac Catheterization: Yes Other/Comment: CABG x 4 stents - ANESTHESIA Hx Anesthesia: Yes Has any member of the family had a problem w/ anesthesia?: No Meds Home Medications: Home Medication List Medication Instructions Recorded Confirmed Type Clotrimazole/Betamethasone 1 gm TOP BID 7 Days tube 10/21/18 Rx [Lotrisone] Furosemide [Lasix] 40 mg PO DAILY 30 Days tablet 10/21/18 Rx Gabapentin [Neurontin] 300 mg PO TID cap 10/21/18 Rx Levothyroxine [Synthroid] 100 mcg PO DAILY@0630 tab 10/21/18 Rx Losartan [Cozaar] 100 mg PO DAILY tab 10/21/18 Rx Nystatin [Mycostatin Cream] 1 ea TOP TID tube 10/21/18 Rx Potassium Chloride [K-Dur 20 mEq 20 meq PO BRK tab 10/21/18 Rx ER Tab] Rivaroxaban [Xarelto] 15 mg PO DAILY tab 10/21/18 Rx Rosuvastatin Calcium [Crestor] 40 mg PO HS tab 10/21/18 Rx Silver Sulfadiazine 1% 20 gm 1 gm TOP BID 7 Days tube 10/21/18 Rx [Silvadene 1% 20 gm] diltiaZEM [Cardizem] 30 mg PO Q8 tab 10/21/18 Rx hydrALAZINE [Apresoline] 25 mg PO Q8 tab 10/21/18 Rx traMADol [Ultram] 25 mg PO Q8H PRN #30 tab 10/21/18 Rx Allergies/Adverse Reactions: Allergies Allergy/AdvReac Type Severity Reaction Status Date / Time No Known Allergies Allergy Unverified 10/13/18 17:26 - Medications Medications: Current Medications Betamethasone/Clotrimazole (Lotrisone) 0 gm TOP BID [facility] Last Admin: 10/21/18 18:58 Dose: Not Given Clopidogrel Bisulfate (Plavix) 75 mg PO DAILY [facility] Last Admin: 10/21/18 09:59 Dose: 75 mg Diltiazem HCl (Cardizem) 30 mg PO Q8 [facility] Last Admin: 10/21/18 21:23 Dose: 30 mg Furosemide (Lasix) 40 mg IVP DAILY [facility] Last Admin: 10/21/18 10:00 Dose: 40 mg Gabapentin (Neurontin) 300 mg PO TID [facility] Last Admin: 10/21/18 18:58 Dose: 300 mg Hydralazine HCl (Apresoline) 25 mg PO Q8 [facility] Last Admin: 10/21/18 21:23 Dose: 25 mg Ceftriaxone Sodium 2 gm/ (Sodium Chloride) 100 mls @ 100 mls/hr IVPB Q24H [facility]; Protocol Last Admin: 10/21/18 12:48 Dose: 100 mls/hr Levothyroxine Sodium (Synthroid) 100 mcg PO DAILY@0630 [facility] Last Admin: 10/21/18 05:30 Dose: 100 mcg Losartan Potassium (Cozaar) 100 mg PO DAILY [facility] Last Admin: 10/21/18 09:59 Dose: 100 mg Nystatin (Mycostatin Cream) 1 ea TOP TID [facility] Last Admin: 12/21/18 18:58 Dose: Not Given Potassium Chloride (K-Dur 20 Meq Er Tab) 20 meq PO BRK ZO Last Admin: 10/21/18 09:59 Dose: 20 meq Rivaroxaban (Xarelto) 15 mg PO DAILY [facility] Last Admin: 10/21/18 09:59 Dose: 15 mg Rosuvastatin Calcium (Crestor) 40 mg PO HS [facility] Last Admin: 10/21/18 21:23 Dose: 40 mg Silver Sulfadiazine (Silvadene 1% 20 Gm) 0 ea TOP BID ZO Last Admin: 10/21/18 18:59 Dose: Not Given Results - Vital Signs Recent Vital Signs: Last Vital Signs Temp 97.7 F 10/21/18 15:00 Pulse 65 10/21/18 16:09 Resp 20 10/21/18 15:00 BP 113/66 10/21/18 15:00 Pulse Ox 95 10/21/18 15:00 - Labs Result Diagrams: 10/21/18 08:00 10/21/18 08:00 Labs: Laboratory Results - last 24 hr 10/21/18 10/21/18 10/21/18 06:51 08:00 08:00 WBC 9.3 RBC 4.86 Hgb 13.8 Hct 40.5 MCV 83.2 MCH 28.4 MCHC 34.1 RDW 15.7 H Plt Count 248 MPV 9.0 Neut % (Auto) 60.9 Lymph % (Auto) 22.4 Carter % (Auto) 12.4 H Eos % (Auto) 3.3 Baso % (Auto) 1.0 Neut # (Auto) 5.6 Lymph # (Auto) 2.1 Carter # (Auto) 1.1 H Eos # (Auto) 0.3 Baso # (Auto) 0.1 Sodium 138 Potassium 4.1 Chloride 101 Carbon Dioxide 26 Anion Gap 16 BUN 20 Creatinine 0.9 Est GFR ( Amer) > 60 Est GFR (Non-Af Amer) > 60 POC Glucose (mg/dL) 151 H Random Glucose 154 H Calcium 9.5 Phosphorus 3.6 Magnesium 1.9 Total Bilirubin 0.7 AST 37 ALT 14 L D Alkaline Phosphatase 120 Total Protein 7.2 Albumin 4.5 Globulin 2.6 Albumin/Globulin Ratio 1.7 10/21/18 10/21/18 10/21/18 11:15 16:25 21:07 WBC RBC Hgb Hct MCV MCH MCHC RDW Plt Count MPV Neut % (Auto) Lymph % (Auto) Carter % (Auto) Eos % (Auto) Baso % (Auto) Neut # (Auto) Lymph # (Auto) Carter # (Auto) Eos # (Auto) Baso # (Auto) Sodium Potassium Chloride Carbon Dioxide Anion Gap BUN Creatinine Est GFR ( Amer) Est GFR (Non-Af Amer) POC Glucose (mg/dL) 176 H 204 H 173 H Random Glucose Calcium Phosphorus Magnesium Total Bilirubin AST ALT Alkaline Phosphatase Total Protein Albumin Globulin Albumin/Globulin Ratio
== END 2018-10-21 23:40 | DRG 292 ==
LOC: C.ER 16:53 → OBSVTOIN 19:17 → C.5S 19:17
PROVIDERS: ADMIT Internal Medicine; ATTEND Internal Medicine
DX: I11.0 Hypertensive heart disease with heart failure (principal); I50.33 Acute on chronic diastolic (congestive) heart failure; L03.115 Cellulitis of right lower limb; L97.929 Non-pressure chronic ulcer of unspecified part of left lower leg with unspecified severity; M62.82 Rhabdomyolysis; E11.621 Type 2 diabetes mellitus with foot ulcer; L97.519 Non-pressure chronic ulcer of other part of right foot with unspecified severity; E11.42 Type 2 diabetes mellitus with diabetic polyneuropathy; E11.51 Type 2 diabetes mellitus with diabetic peripheral angiopathy without gangrene; E11.622 Type 2 diabetes mellitus with other skin ulcer; I87.2 Venous insufficiency (chronic) (peripheral); I25.10 Atherosclerotic heart disease of native coronary artery without angina pectoris; I27.81 Cor pulmonale (chronic); I27.29 Other secondary pulmonary hypertension; I48.91 Unspecified atrial fibrillation; J44.9 Chronic obstructive pulmonary disease, unspecified; N28.9 Disorder of kidney and ureter, unspecified; N40.0 Benign prostatic hyperplasia without lower urinary tract symptoms; G47.33 Obstructive sleep apnea (adult) (pediatric); E78.00 Pure hypercholesterolemia, unspecified; E66.9 Obesity, unspecified; M19.90 Unspecified osteoarthritis, unspecified site; Z95.1 Presence of aortocoronary bypass graft; Z95.5 Presence of coronary angioplasty implant and graft; I25.2 Old myocardial infarction; Z86.73 Personal history of transient ischemic attack (TIA), and cerebral infarction without residual deficits; Z79.4 Long term (current) use of insulin; Z87.891 Personal history of nicotine dependence; Z79.01 Long term (current) use of anticoagulants; Z79.890 Hormone replacement therapy; Z79.899 Other long term (current) drug therapy